=== PATIENT | female | born 1950 | race Caucasian/White ===

== ENCOUNTER → 2018-06-08 07:56 | Outpatient (CLI) | payer OTHER, SELFPAY ==
[2018-06-08 08:07] LABS: RBC Urine None Seen (0-5/HPF); WBC Urine None Seen (0-5/HPF)
[2018-06-08 08:47] LABS: Add Manual Diff / Slide Review NO; Basophils Percent Auto 1.1 % (0-2); Eosinophils Percent Auto 2.8 % (2-4); Hematocrit 43.7 % (36-46); Hemoglobin 14.7 g/dL (12.0-16.0); Lymphocytes Percent Auto 35.5 % (25-40); Mean Corpuscular HGB Conc 33.7 % (30-36); Mean Corpuscular Hemoglobin 30.8 PG (26-34); Mean Corpuscular Volume 91.5 fL (80-100); Monocytes Percent Auto 8.6 % (3-14); Neutrophils Absolute Auto 2200 /uL (3000-5900); Platelet Count 183 X10^3/uL (150-400); Red Blood Cell Count 4.77 X10^6/uL (4.0-5.2); Red Cell Distribution Width 13.9 % (11.6-14.8); White Blood Cell Count 4.2 X10^3/uL (4.5-11.0)
[2018-06-08 09:06] LABS: Appearance Urine UA CLEAR; Bilirubin Urine UA NEGATIVE (NEGATIVE); Color Urine UA YELLOW; Glucose Urine UA NEGATIVE (Normal); Ketones Urine UA NEGATIVE (NEGATIVE); Leukocyte Esterase Urine UA NEGATIVE (NEGATIVE); Nitrite Urine UA Negative (Negative); Occult Blood Urine UA NEGATIVE (Negative); Protein Urine UA NEGATIVE (Negative); Urobilinogen Urine UA 0.2 E.U./dL (0.2)
[2018-06-08 09:20] LABS: Amorphous Sediment Urine 4+; Bacteria Urine Occasional (0-1); Culture Indicated Urine Cult Not Indicated; Mucus Urine 1+ (Negative)
[2018-06-08 09:29] LABS: Alanine Aminotransferase 22 IU/L (9-52); Albumin 4.2 g/dL (3.5-5.0); Albumin Globulin Ratio 1.5 (1.0-2.8); Alkaline Phosphatase 68 U/L (38-126); Aspartate Aminotransferase 25 IU/L (14-36); Bilirubin Total 1.7 mg/dL (0.2-1.3); Blood Urea Nitrogen 20 mg/dL (7-17); Calcium 9.7 mg/dL (8.4-10.2); Carbon Dioxide 33 mmol/L (22-32); Chloride 101 mmol/L (98-107); Cholesterol 211 mg/dL (140-199); Estimated Glomerular Filt Rate > 60.0 mL/min (>60); Globulin 2.8 g/dL (1.7-4.1); Glucose 102 mg/dL (80-110); HDL Cholesterol 67 mg/dL (40-60); HEMOLYSIS < 15 (0-50); LDL Cholesterol Calculated 128 mg/dL (<100); Potassium 4.2 mmol/L (3.4-5.1); Sodium 141 mmol/L (137-145); Triglycerides 81 mg/dL (35-150)
[2018-06-08 11:05] LABS: TSH w/ Reflex to FT4 2.27 uIU/mL (0.47-4.68)
== END ==
PROVIDERS: PCP Nurse Practitioner Family; Visit Provider Nurse Practitioner Family
DX: E78.4 Other hyperlipidemia (principal); E83.52 Hypercalcemia
CPT/HCPCS: 36415; 80053; 80061; 81001; 84443; 85025

== ENCOUNTER → 2018-12-15 12:50 | Outpatient (CLI) | payer MEDICARE, SELFPAY ==
--- NOTE | 2018-12-15 12:52 | DI.MG.S_ITS ---
BILATERAL DIGITAL SCREENING MAMMOGRAM 3D/2D WITH CAD: 12/15/2018 CLINICAL: Routine screening. Family history of breast cancer. Comparison is made to exams dated: 12/04/2017 mammogram, 11/10/2016 mammogram, and 10/30/2015 mammogram - [facility]. The tissue of both breasts is heterogeneously dense. This may lower the sensitivity of mammography. Current study was also evaluated with a Computer Aided Detection (CAD) system. No significant masses, calcifications, or other findings are seen in either breast. There has been no significant interval change. IMPRESSION: NEGATIVE There is no mammographic evidence of malignancy. A 1 year screening mammogram is recommended. This exam was interpreted at Station ID: [id number]. NOTE: For mammograms, a report in lay terms will be sent to the patient. Approximately 15% of breast malignancies will not be visualized mammographically. In the management of a palpable breast mass, a negative mammogram must not discourage biopsy of a clinically suspicious lesion. Electronically Signed By: Ailyn kelsey/abel:12/16/2018 10:58:16 letter sent: Normal Exam ACR BI-RADS Category 1: Negative 3341F
== END ==
PROVIDERS: PCP Internal Medicine; Visit Provider Internal Medicine
DX: Z12.31 Encounter for screening mammogram for malignant neoplasm of breast (principal); Z80.3 Family history of malignant neoplasm of breast
CPT/HCPCS: 77063; 77067

== ENCOUNTER → 2020-03-12 10:13 | Outpatient (CLI) | payer MEDICARE, SELFPAY ==
--- NOTE | 2020-03-12 | DI.MG.S_ITS ---
BILATERAL DIGITAL SCREENING MAMMOGRAM 3D/2D WITH CAD: 03/12/2020 CLINICAL: Routine screening. Family history of breast cancer. Comparison is made to exams dated: 12/15/2018 mammogram, 12/04/2017 mammogram, and 11/10/2016 mammogram - [facility]. The tissue of both breasts is heterogeneously dense. This may lower the sensitivity of mammography. Current study was also evaluated with a Computer Aided Detection (CAD) system. No significant masses, calcifications, or other findings are seen in either breast. There has been no significant interval change. IMPRESSION: NEGATIVE There is no mammographic evidence of malignancy. A 1 year screening mammogram is recommended. This exam was interpreted at Station ID: [id number]. NOTE: For mammograms, a report in lay terms will be sent to the patient. Approximately 15% of breast malignancies will not be visualized mammographically. In the management of a palpable breast mass, a negative mammogram must not discourage biopsy of a clinically suspicious lesion. Electronically Signed By: Tony villagomez/abel:03/12/2020 10:55:30 letter sent: Normal Exam ACR BI-RADS Category 1: Negative 3341F
== END ==
PROVIDERS: PCP Internal Medicine; Referring Provider Internal Medicine; Visit Provider Internal Medicine
DX: Z12.31 Encounter for screening mammogram for malignant neoplasm of breast (principal); Z80.3 Family history of malignant neoplasm of breast
CPT/HCPCS: 77063; 77067

== ENCOUNTER → 2020-10-08 18:41 | Outpatient (ROUT) | payer MEDICARE, SELFPAY ==
[2020-10-08 19:21] LABS: Cholesterol 204 mg/dL (140-199); Glucose 83 mg/dL (80-110); HDL Cholesterol 68 mg/dL (40-60); LDL Cholesterol Calculated 122 mg/dL (<100); Triglycerides 72 mg/dL (35-150)
== END ==
PROVIDERS: PCP Internal Medicine; Visit Provider Internal Medicine
DX: E78.2 Mixed hyperlipidemia (principal)
CPT/HCPCS: 80061; 82947

== ENCOUNTER → 2020-11-06 11:28 | Outpatient (CLI) | payer MEDICARE, SELFPAY ==
--- NOTE | 2020-11-06 11:31 | DI.MRI.S_ITS ---
BREAST MRI OF BOTH BREASTS: 11/06/2020 CLINICAL: Genetic susciptibility to malignant neoplasm of breast. Comparison is made to exams dated: 03/12/2020 mammogram, 12/15/2018 mammogram, and 12/04/2017 mammogram - [facility]. INDICATIONS: Genetic susceptibility to malignant neoplasm of br TECHNIQUE: The patient was placed prone in a dedicated breast imaging coil. Precontrast axial STIR and 3D FLASH without fat saturation sequences were obtained. Both before and after bolus injection of contrast, sequential 1-minute axial 3D FLASH with fat saturation sequences for 3 time points, with subtraction images and maximum intensity projections (MIP's) generated. Delayed sagittal FLASH images with fat saturation were also obtained. Computer-aided detection, including computer algorithm analysis of MRI image data for lesion detection and characterization, pharmacokinetic analysis, with further physician review for interpretation, was performed. FINDINGS: Image quality: Excellent. There is mild background parenchymal enhancement. Heterogeneously dense breast tissue is seen bilaterally. Right breast: No suspicious mass or significant focus of non-mass enhancement is identified. Left breast: No suspicious mass or significant focus of non-mass enhancement is identified. Miscellaneous: No axillary or internal mammary lymphadenopathy by size criteria. Visualized portions of the lungs and liver demonstrate no discrete suspicious lesions. IMPRESSION: NEGATIVE 1. No suspicious mass or significant non mass enhancement is identified. 2. No suspicious axillary lymphadenopathy. BIRADS 1: Negative. Recommend continued high risk screening protocol with annual screening mammograms and annual breast MRIs at alternating 6 month intervals. COMMENT: The imaging literature indicates that a negative contrast breast MRI examination has a high sensitivity and a moderate specificity for detecting and excluding invasive carcinomas to a detection threshold of 3-5 mm; nonetheless, appropriate clinical and mammographic follow-up are recommended. MRI is not sensitive for detecting DCIS (ductal carcinoma in situ) and may not detect large invasive neoplasms that show only minimal enhancement such as mucinous carcinoma. If there are suspicious calcifications or clinically worrisome palpable masses, then biopsy should still be considered. Invasive neoplasms can be hidden by co-existent and benign enhancement caused by mastitis, hormone therapy effects, radiation therapy, , and recent biopsy or surgery. False positive examinations can occur in a number of circumstances, including breasts that have recently been subject to invasive procedures and those that contain atypical ductal hyperplasia, hormonally stimulated glandular tissue, fat necrosis, or radial scars. A 1 year screening mammogram and a breast MRI is recommended. Future imaging is recommended as follows: 03/13/2021 screening mammogram. This exam was interpreted at Station ID: [id number]. Electronically Signed By: Jamaal Langley M.D. ar/:11/06/2020 16:13:18 letter sent: Normal Exam ACR BI-RADS Category 1: Negative 3341F
== END ==
PROVIDERS: PCP Internal Medicine; Referring Provider Internal Medicine; Visit Provider Internal Medicine
DX: Z12.39 Encounter for other screening for malignant neoplasm of breast (principal); Z15.01 Genetic susceptibility to malignant neoplasm of breast
CPT/HCPCS: 77049

== ENCOUNTER → 2021-03-13 10:08 | Outpatient (CLI) | payer OTHER, SELFPAY ==
--- NOTE | 2021-03-13 | DI.MG.S_ITS ---
BILATERAL DIGITAL SCREENING MAMMOGRAM 3D/2D WITH CAD: 03/13/2021 CLINICAL: Routine screening. Family history of breast cancer. Comparison is made to exams dated: 03/12/2020 mammogram, 12/15/2018 mammogram, 12/04/2017 mammogram, 11/10/2016 mammogram, and 10/30/2015 mammogram - [facility]. The tissue of both breasts is heterogeneously dense. This may lower the sensitivity of mammography. Current study was also evaluated with a Computer Aided Detection (CAD) system. No significant masses, calcifications, or other findings are seen in either breast. There has been no significant interval change. IMPRESSION: NEGATIVE There is no mammographic evidence of malignancy. A 1 year screening mammogram is recommended. Future imaging is recommended as follows: 11/06/2021 screening breast MRI. This exam was interpreted at Station ID: [id number]. NOTE: For mammograms, a report in lay terms will be sent to the patient. Approximately 15% of breast malignancies will not be visualized mammographically. In the management of a palpable breast mass, a negative mammogram must not discourage biopsy of a clinically suspicious lesion. Electronically Signed By: Kendrick bridges/abel:03/13/2021 17:19:59 letter sent: Normal Exam ACR BI-RADS Category 1: Negative 3341F
== END ==
PROVIDERS: PCP Internal Medicine; Referring Provider Internal Medicine; Visit Provider Internal Medicine
DX: Z12.31 Encounter for screening mammogram for malignant neoplasm of breast (principal); Z80.3 Family history of malignant neoplasm of breast
CPT/HCPCS: 77063; 77067

== ENCOUNTER → 2021-04-08 09:40 | Outpatient (CLI) | payer OTHER, SELFPAY ==
[2021-04-08 11:13] LABS: COVID19 -Nasal RAPID Negative (Negative)
== END ==
PROVIDERS: PCP Internal Medicine; Visit Provider Physician Assistant
DX: Z01.812 Encounter for preprocedural laboratory examination (principal); Z20.822 Contact with and (suspected) exposure to COVID-19
CPT/HCPCS: 87635

== ENCOUNTER 2021-04-10 08:27 | Day surgery (SDC) | payer OTHER, SELFPAY ==
--- NOTE | 2021-04-10 | PATH_ITS ---
[facility] Accession Number: [id number] . 01 Material submitted: . colon - ASCENDING COLON POLYP X2 . 02 Diagnosis: Ascending Colon, Polyps, Biopsies: Sessile serrated adenomas. I 04/12/2021 1135 Local . 02 Electronically signed: . Ashley Morgan MD, Pathologist NPI- [id number] . 01 Gross description: . ASCENDING COLON POLYP X2: Received in formalin are 2 fragment(s) of perez, soft tissue measuring 0.2 x 0.2 x 0.2 cm to 0.8 x 0.3 x 0.2 cm submitted entirely in 1 cassette(s) /LIANG 04/11/2021 0145 Local . 02 Pathologist provided ICD-10: D12.2 . 02 CPT . 670068 Performed at: 01 [facility] [address] [id number] MD Michael Daniel MD Phone: [phone] Performed at: 02 [facility] [address] [place], [place] [id number] MD Ashley Morgan MD Phone: [phone]
[2021-04-10 08:56] VITALS: BMI 22.7
[2021-04-10 09:01] VITALS: BP 112/75; PULSE 83; RESP 14; TEMP 36.3; O2SAT 100
[2021-04-10] MEDS: SODIUM CHLORIDE 0.9% 1,000 ML 70 ML IV (09:02)
--- NOTE | 2021-04-10 09:32 | P.HP_ITS ---
History of Present Illness History of Present Illness Date Patient Seen: 04/10/21 Time Patient Seen: 09:32 Chief complaint: MTC Narrative: Patient is a very pleasant 71-year-old female who presented for colonoscopy. Her last colonoscopy was July 23, 2014. She did have polyps at that time and a 5 year recheck was recommended. Her father also had colon polyps. Her sister was recently diagnosed with a genetic mutation which carries an increased risk for breast cancer and colon cancer. The patient has not yet been tested. Patient History Medical History (Updated 06/15/18 @ 18:18 by Nava Baez DNP, ANDREA, [employer]) Cataract (2011) Cervical spinal stenosis (2011) Chicken pox Colon polyps Fibroids History of heavy periods (1994) History of vaginal delivery Measles Mumps Osteopenia (~1996) Ovarian cyst (2004) Piriformis syndrome (2015) Toe fracture (2013) Surgical History Anesthesia History of bilateral salpingo-oophorectomy (BSO) History of cataract removal with insertion of prosthetic lens (2011) History of right oophorectomy (2004) History of third molar tooth extraction (1971) Family & Social History Family History Brother Age: 65 Bipolar 1 disorder Cardiomyopathy Diabetes mellitus Heart disease Hypertension High cholesterol COPD (chronic obstructive pulmonary disease) Father S/P CABG x 6 Heart disease High cholesterol Mental health problem Parkinson's disease Dementia Grandfather Hypertension Stroke Migraines Mother Heart disease Heart attack Grandfather Cancer Grandmother Cancer Sister Age: 56 Heart disease High cholesterol Mental health problem Grandmother Dementia Social History: household members spouse Tobacco & Substance use: Smoking Status Never smoker alcohol intake current alcohol intake frequency 0-2 drinks per day Substance Use Type does not use Meds Home Medications and Allergies Home Medications Medication Instructions Recorded Confirmed Type Fish Oil (Fish Oil 500 MG Softgel) 500 mg PO Q DAY #0 01/03/13 04/10/21 History cholecalciferol (vitamin D3) 25 mcg PO DAILY 04/10/21 04/10/21 History [Vitamin D3] coenzyme Q10 [CoQ-10] 100 mg PO DAILY 04/10/21 04/10/21 History magnesium 250 mg PO DAILY 04/10/21 04/10/21 History Allergies Allergy/AdvReac Type Severity Reaction Status Date / Time Penicillins Allergy Mild RASH Verified 04/10/21 08:40 Review of Systems Review of Systems ROS: Yes All systems reviewed with the patient and are negative except as otherwise documented Exam Vital Signs (past 8 hours): - 04/10/21 09:01 Temperature 97.3 F L Pulse Rate 83 Respiratory Rate 14 Blood Pressure 112/75 Pulse Oximetry 100 Oxygen Delivery Method Room Air Const General: cooperative, healthy appearing, comfortable, well developed, well groomed and No acute distress [facility] Head: normal to inspection, normocephalic and atraumatic Resp Effort & Inspection: normal respiratory effort and able to speak in complete sentences Auscultation: clear to auscultation bilaterally Cardio Rate: regular rate Rhythm: regular rhythm Heart Sounds: S1 normal and S2 normal GI Palpation: soft Auscultation: normal bowel sounds Extrem Right lower extremity: no edema Left lower extremity: no edema Assessment & Plan Assessment & Plan narrative: 1. Colonoscopy today, further recommendations to follow
[2021-04-10] MEDS: fentaNYL 250 MCG/5 ML INJ IV (09:41)
[2021-04-10] MEDS: MIDAZOLAM 5 MG/5 ML VIAL IV (09:41)
[2021-04-10 10:19] VITALS: BP 101/66; PULSE 80; RESP 16; TEMP 36.4; O2SAT 96
--- NOTE | 2021-04-10 10:20 | PM.OP.ENDO ---
Operative Date/Time/Diagnoses Date of procedure: 04/10/21 Time of procedure: 09:41 Procedure Notes Procedure in detail: Surgeon: Valentina Gould DO Procedure: Colonoscopy with polypectomy Preoperative diagnosis: 1. Personal history colon polyps, last colonoscopy 07/24/2014 2. Family history colon polyps, father 3. Sister with genetic syndromes increasing risk of breast cancer and colon cancer Postoperative diagnosis: 1. Two ascending colon polyps from 3 mm to 11 mm 2. Scattered diverticulosis 3. Grade 1 internal hemorrhoids Medications: Conscious sedation using 5 mg IV of Midazolam and 100 mcg IV of Fentanyl Preanesthesia Assessment An H and P was performed/updated and the Px?s ASA class is 2. The procedure was discussed in detail with the patient. The potential risks and complications including infection, bleeding, missed lesions, perforation, need for surgery in case of perforation, prolonged hospital stay, and were explained. A brief question and answer period was allotted and once all questions were answered, informed consent was obtained. The patient was brought back to the procedure room and placed on standard monitoring. The patient?s vital signs were monitored continuously throughout the entire procedure. Prior to starting, a timeout was performed to confirm the patient?s identity, allergies, medications, and procedure. Procedure in detail The patient was placed in left lateral decubitus position and once adequate sedation was obtained a KAVITA was performed. The digital rectal examination did not reveal any palpable lesions. The tip of the colonoscope was placed in the anal canal and advanced with some difficulty, manual pressure was applied due to redundant colon with significant looping. With assistance we were able to advance all the way to the cecum which was identified by the appendiceal orifice and the ileocecal valve. Careful examination of all tian of the colon was performed with irrigation of any residual stool. Patient was noted to have an ascending colon polyp 11 mm flat removed with cold snare. An additional 3 mm colon polyp in ascending colon removed with Jumbo forceps. Scattered diverticulosis noted throughout the colon. Grade 1 internal hemorrhoids noted on retroflexion. The patient tolerated the procedure well and will be brought back to the recovery area to be discharged once criteria are met. The prep was judged to be good/excellent and adequate to identify polyps less than 5 mm. The withdrawal time was 11min. The total physician intraservice time was 34min. Complications There were no complications and estimated blood loss was minimal. Recommendations: Resume previous diet Continue outPx medications Follow up pathology results Repeat colonoscopy after pathology results are reviewed Office follow up in An emergency contact number was given to the patient for any complications related to the procedure
[2021-04-10 10:24] VITALS: BP 102/66; PULSE 68; RESP 16; O2SAT 99
[2021-04-10 10:28] VITALS: BP 108/64; PULSE 69; RESP 16; O2SAT 99
[2021-04-10 10:39] VITALS: BP 110/67; PULSE 64; RESP 14; O2SAT 98
[2021-04-10 10:45] VITALS: BP 105/63; PULSE 62; RESP 16; TEMP 36.7; O2SAT 98
== END 2021-04-10 10:59 | disposition home or self-care (01) ==
PROVIDERS: PCP Internal Medicine; Referring Provider Internal Medicine; Visit Provider Student in an Organized Health Care Education/Training Program
PROC: 0DJD8ZZ Inspection of Lower Intestinal Tract, Via Natural or Artificial Opening Endoscopic (ICD-10-PCS; CPT 45378; principal; 2021-04-10 09:30)
DX: Z12.11 Encounter for screening for malignant neoplasm of colon (principal); Z86.010 Personal history of colon polyps; Z83.71 Family history of colonic polyps; K57.30 Diverticulosis of large intestine without perforation or abscess without bleeding; K64.0 First degree hemorrhoids; D12.2 Benign neoplasm of ascending colon
CPT/HCPCS: 45385; 45380; J2250; J3010

== ENCOUNTER → 2021-08-21 07:08 | Outpatient (CLI) | payer OTHER, SELFPAY ==
[2021-08-21 07:51] LABS: COVID19 -Nasal RAPID Negative (Negative)
== END ==
PROVIDERS: PCP Internal Medicine; Visit Provider Nurse Practitioner Family
DX: Z20.822 Contact with and (suspected) exposure to COVID-19 (principal); R05.9 Cough, unspecified; R09.81 Nasal congestion; R51.9 Headache, unspecified
CPT/HCPCS: 87635

== ENCOUNTER → 2021-09-25 10:05 | Outpatient (CLI) | payer OTHER, SELFPAY ==
--- NOTE | 2021-09-25 | DI.RAD.S_ITS ---
PROCEDURE: XR CHEST 2V INDICATIONS: CHRONIC COUGH TECHNIQUE: 2 views of the chest were acquired. COMPARISON: None. FINDINGS: Surgical changes and devices: None. Lungs and pleura: No pneumothorax or pleural effusion. Diffuse interstitial prominence likely chronic in etiology. Mild hyperaeration and flattening of the hemidiaphragms. No focal consolidation. Mediastinum: Mediastinal contours are normal. Heart size is normal. Bones and chest wall: No suspicious bony abnormalities. Soft tissues appear unremarkable. IMPRESSION: Findings suggestive of chronic obstructive pulmonary physiology. No acute cardiopulmonary abnormality seen. No focal consolidations. Consider correlation with pulmonary function testing. Dictated by: Tony Zuniga M.D. on 09/25/2021 at 10:35 Approved by: Tony Zuniga M.D. on 09/25/2021 at 10:37
== END ==
PROVIDERS: PCP Internal Medicine; Referring Provider Internal Medicine; Visit Provider Internal Medicine
DX: R05.3 Chronic cough (principal)
CPT/HCPCS: 71046

== ENCOUNTER → 2021-11-05 11:21 | Outpatient (CLI) | payer MEDICARE, SELFPAY ==
--- NOTE | 2021-11-05 11:22 | DI.MRI.S_ITS ---
BREAST MRI OF BOTH BREASTS: 11/05/2021 CLINICAL: Genitic susceptibility to malignant neoplasm of breast. PROCEDURE: MR BREAST BI WO/W CON INDICATIONS: Genetic susceptibility to malignant neoplasm of br TECHNIQUE: The patient was placed prone in a dedicated breast imaging coil. Precontrast axial STIR and 3D FLASH without fat saturation sequences were obtained. Both before and after bolus injection of contrast, sequential 1-minute axial 3D FLASH with fat saturation sequences for 3 time points, with subtraction images and maximum intensity projections (MIP's) generated. Delayed sagittal FLASH images with fat saturation were also obtained. 20 cc ProHance IV contrast. Computer-aided detection, including computer algorithm analysis of MRI image data for lesion detection and characterization, pharmacokinetic analysis, with further physician review for interpretation, was performed. COMPARISON: [facility], CR, XR CHEST 2V, 09/25/2021, 9:59. [facility], MG, MM SCREENING MAMMO BI, 03/13/2021, 10:31. [facility], , MM SCREENING MAMMO BI, 03/12/2020, 10:30. [facility], , MM SCREENING MAMMO BI, 12/15/2018, 13:15. [facility], , MR BREAST BI WO/W CON, 11/06/2020, 11:39. FINDINGS: Image quality: Excellent. There is minimal background parenchymal enhancement. Right breast: No mass or suspicious enhancement. Left breast: No mass. Enhancing focus 12:00 o'clock middle depth measuring 0.3 cm, (), unchanged. Benign kinetics. Miscellaneous: No enlarged axillary nodes. Mediastinal adenopathy, (/112, 99, 91). IMPRESSION: BENIGN 1. Right breast: No mass or suspicious enhancement. 2. Left breast: No mass or suspicious enhancement. 3. No axillary adenopathy. 4. Mediastinal adenopathy is identified. -Recommend further evaluation with CT of the chest with IV contrast. BIRADS 2. A 1 year screening mammogram is recommended. 03/14/[address] Chest with IV contrast. Results called to [facility] in the office of Dr. Merrill. COMMENT: The imaging literature indicates that a negative contrast breast MRI examination has a high sensitivity and a moderate specificity for detecting and excluding invasive carcinomas to a detection threshold of 3-5 mm; nonetheless, appropriate clinical and mammographic follow-up are recommended. MRI is not sensitive for detecting DCIS (ductal carcinoma in situ) and may not detect large invasive neoplasms that show only minimal enhancement such as mucinous carcinoma. If there are suspicious calcifications or clinically worrisome palpable masses, then biopsy should still be considered. Invasive neoplasms can be hidden by co-existent and benign enhancement caused by mastitis, hormone therapy effects, radiation therapy, , and recent biopsy or surgery. False positive examinations can occur in a number of circumstances, including breasts that have recently been subject to invasive procedures and those that contain atypical ductal hyperplasia, hormonally stimulated glandular tissue, fat necrosis, or radial scars. Dictated by: Kendrick Lazcano M.D. on 11/05/2021 at 15:09 This exam was interpreted at Station ID: [id number]. Electronically Signed By: Kendrick Lazcano M.D. slc/:11/05/2021 15:55:14 Entry: - 11/06/2021 12:06:14 ACR BI-RADS Category 2: Benign Finding(s) 3342F
== END ==
PROVIDERS: PCP Internal Medicine; Referring Provider Internal Medicine; Visit Provider Internal Medicine
DX: Z12.39 Encounter for other screening for malignant neoplasm of breast (principal); R59.0 Localized enlarged lymph nodes; Z15.01 Genetic susceptibility to malignant neoplasm of breast; Z15.89 Genetic susceptibility to other disease; Z15.09 Genetic susceptibility to other malignant neoplasm; Z15.02 Genetic susceptibility to malignant neoplasm of ovary
CPT/HCPCS: 77049; A9579

== ENCOUNTER → 2022-03-14 11:38 | Outpatient (CLI) | payer OTHER, SELFPAY ==
--- NOTE | 2022-03-14 | DI.MG.S_ITS ---
BILATERAL DIGITAL SCREENING MAMMOGRAM 3D/2D WITH CAD: 03/14/2022 CLINICAL: Routine screening. Family history of breast cancer. Comparison is made to exams dated: 03/13/2021 mammogram, 11/05/2021 breast MRI, 03/12/2020 mammogram, and 12/15/2018 mammogram - [facility]. The tissue of both breasts is heterogeneously dense. This may lower the sensitivity of mammography. Current study was also evaluated with a Computer Aided Detection (CAD) system. There are benign vascular calcifications in both breasts. No significant masses, calcifications, or other findings are seen in either breast. There has been no significant interval change. IMPRESSION: BENIGN There is no mammographic evidence of malignancy. A 1 year screening mammogram is recommended. This exam was interpreted at Station ID: [id number]. NOTE: For mammograms, a report in lay terms will be sent to the patient. Approximately 15% of breast malignancies will not be visualized mammographically. In the management of a palpable breast mass, a negative mammogram must not discourage biopsy of a clinically suspicious lesion. Electronically Signed By: Tony villagomez/abel:03/14/2022 12:15:44 letter sent: Normal Exam ACR BI-RADS Category 2: Benign Finding(s) 3342F
== END ==
PROVIDERS: PCP Internal Medicine; Referring Provider Internal Medicine; Visit Provider Internal Medicine
DX: Z12.31 Encounter for screening mammogram for malignant neoplasm of breast (principal); Z80.3 Family history of malignant neoplasm of breast
CPT/HCPCS: 77063; 77067

== ENCOUNTER → 2022-09-12 14:52 | Outpatient (CLI) | payer OTHER, SELFPAY ==
[2022-09-12 15:26] LABS: Hematocrit 41.6 % (36-46); Hemoglobin 13.6 g/dL (12.0-16.0); Mean Corpuscular HGB Conc 32.6 % (30-36); Mean Corpuscular Hemoglobin 28.4 PG (26-34); Platelet Count 255 X10^3/uL (150-400); Red Blood Cell Count 4.79 X10^6/uL (4.0-5.2); Red Cell Distribution Width 15.8 % (11.6-14.8); White Blood Cell Count 5.8 X10^3/uL (4.5-11.0)
[2022-09-12 15:56] LABS: Erythrocyte Sedimentation Rate 6 MM/HR (0-20)
[2022-09-12 16:04] LABS: Cholesterol 202 mg/dL (140-199); HEMOLYSIS < 15 (0-50)
[2022-09-12 16:06] LABS: Alanine Aminotransferase 15 IU/L (<35); Albumin 4.1 g/dL (3.5-5.0); Albumin Globulin Ratio 1.1 (1.0-2.8); Alkaline Phosphatase 87 U/L (38-126); Aspartate Aminotransferase 20 IU/L (14-36); BUN Creatinine Ratio 26.5 (6-22); Bilirubin Total 0.8 mg/dL (0.2-1.3); Blood Urea Nitrogen 22 mg/dL (7-17); C-Reactive Protein Quant 0.6 mg/dL (<1.0); Calcium 9.9 mg/dL (8.4-10.2); Carbon Dioxide 30 mmol/L (22-32); Chloride 100 mmol/L (98-107); Estimated Glomerular Filt Rate > 60 mL/min (>60); Globulin 3.6 g/dL (1.7-4.1); Glucose 106 mg/dL (80-110); HDL Cholesterol 64 mg/dL (40-60); LDL Cholesterol Calculated 121 mg/dL (<100); Potassium 4.3 mmol/L (3.4-5.1); Sodium 139 mmol/L (137-145); Total Protein 7.7 g/dL (6.3-8.2); Triglycerides 87 mg/dL (35-150)
[2022-09-12 16:30] LABS: TSH w/ Reflex to FT4 2.47 uIU/mL (0.47-4.68)
== END ==
PROVIDERS: PCP Internal Medicine; Referring Provider Internal Medicine; Visit Provider Internal Medicine
DX: E78.2 Mixed hyperlipidemia (principal); J30.2 Other seasonal allergic rhinitis; M35.3 Polymyalgia rheumatica
CPT/HCPCS: 36415; 80053; 80061; 84443; 85027; 85651; 86140

== ENCOUNTER → 2022-11-14 10:43 | Outpatient (CLI) | payer MEDICARE, SELFPAY ==
--- NOTE | 2022-11-14 10:44 | DI.MRI.S_ITS ---
BREAST MRI OF BOTH BREASTS: 11/14/2022 CLINICAL: BCRA positive. Comparison is made to exams dated: 03/14/2022 mammogram, 11/05/2021 breast MRI, 03/13/2021 mammogram, 11/06/2020 breast MRI, and 03/12/2020 mammogram - [facility]. 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 Precontrast axial STIR and 3D FLASH without fat saturation sequences were obtained. Both before and after bolus injection of contrast, sequential 1-minute axial 3D FLASH with fat saturation sequences for 3 time points, with subtraction images and maximum intensity projections (MIP's) generated. Delayed sagittal FLASH images with fat saturation were also obtained. Computer-aided detection, including computer algorithm analysis of MRI image data for lesion detection and characterization, pharmacokinetic analysis, with further physician review for interpretation, was performed. FINDINGS: Image quality: Excellent. There is minimal background parenchymal enhancement. The tissue of both breasts is heterogeneously dense. Right breast: No suspicious mass or abnormal non-mass enhancement is seen in the breast. No significant internal mammary or axillary lymphadenopathy. Left breast: No suspicious mass or abnormal non-mass enhancement is seen in the breast. No significant internal mammary or axillary lymphadenopathy. Miscellaneous: The included portions of the anterior chest wall and upper abdomen are unremarkable. Previously seen mediastinal lymphadenopathy is no longer visualized. IMPRESSION: NEGATIVE 1. No MR evidence of malignancy in the right or left breast. 2. No axillary or internal mammary lymphadenopathy. BIRADS 1: Negative. Recommend continued annual high risk screening with annual mammograms and annual breast MRI. COMMENT: The imaging literature indicates that a negative contrast breast MRI examination has a high sensitivity and a moderate specificity for detecting and excluding invasive carcinomas to a detection threshold of 3-5 mm; nonetheless, appropriate clinical and mammographic follow-up are recommended. MRI is not sensitive for detecting DCIS (ductal carcinoma in situ) and may not detect large invasive neoplasms that show only minimal enhancement such as mucinous carcinoma. If there are suspicious calcifications or clinically worrisome palpable masses, then biopsy should still be considered. Invasive neoplasms can be hidden by co-existent and benign enhancement caused by mastitis, hormone therapy effects, radiation therapy, , and recent biopsy or surgery. False positive examinations can occur in a number of circumstances, including breasts that have recently been subject to invasive procedures and those that contain atypical ductal hyperplasia, hormonally stimulated glandular tissue, fat necrosis, or radial scars. A 1 year screening mammogram and a breast MRI is recommended. Future imaging is recommended as follows: 03/15/2023 screening mammogram. This exam was interpreted at Station ID: [id number]. Electronically Signed By: Jamaal Langley M.D. ar/:11/14/2022 19:58:20 letter sent: Normal Exam ACR BI-RADS Category 1: Negative 3341F
== END ==
PROVIDERS: PCP Internal Medicine; Referring Provider Internal Medicine; Visit Provider Internal Medicine
DX: Z12.39 Encounter for other screening for malignant neoplasm of breast (principal); Z15.01 Genetic susceptibility to malignant neoplasm of breast; Z15.02 Genetic susceptibility to malignant neoplasm of ovary; Z15.09 Genetic susceptibility to other malignant neoplasm; Z15.89 Genetic susceptibility to other disease; Z80.3 Family history of malignant neoplasm of breast
CPT/HCPCS: 77049; A9579

== ENCOUNTER → 2023-01-24 07:56 | Outpatient (CLI) | payer MEDICARE, SELFPAY ==
[2023-01-24 09:05] LABS: Influenza A - CEPHEID Flu A NEGATIVE (NEGATIVE); Influenza B - CEPHEID Flu B NEGATIVE (NEGATIVE); Respiratory Syncytial Virus Negative (Negative)
[2023-01-24 09:11] LABS: COVID-19 CEPHEID 4-PLEX PCR Negative (Negative)
== END ==
PROVIDERS: PCP Internal Medicine; Visit Provider Nurse Practitioner Family
DX: J06.9 Acute upper respiratory infection, unspecified (principal); Z20.822 Contact with and (suspected) exposure to COVID-19
CPT/HCPCS: 0241U

== ENCOUNTER → 2023-03-20 11:44 | Outpatient (CLI) | payer MEDICARE, SELFPAY ==
--- NOTE | 2023-03-20 | DI.MG.S_ITS ---
BILATERAL DIGITAL SCREENING MAMMOGRAM 3D/2D WITH CAD: 03/20/2023 CLINICAL: Routine screening. Family history of breast cancer. Comparison is made to exams dated: 03/14/2022 mammogram, 03/13/2021 mammogram, 03/12/2020 mammogram, and 12/15/2018 mammogram - [facility]. Both breasts are heterogeneously dense, which may obscure small masses (category c / 51-75% glandular tissue). Current study was also evaluated with a Computer Aided Detection (CAD) system. There are benign vascular calcifications in both breasts. No significant masses, calcifications, or other findings are seen in either breast. There has been no significant interval change. IMPRESSION: BENIGN There is no mammographic evidence of malignancy. A 1 year screening mammogram is recommended. Future imaging is recommended as follows: 11/15/2023 screening breast MRI. Based on the Tyrer Cuzick model (a risk assessment model) the patient's lifetime risk is 16.5% and her 10 year risk is 11.5%. According to the ACR, ACS, and NCCN guidelines, an annual breast MRI exam along with mammogram is recommended if the patient's lifetime risk is 20% or greater. This exam was interpreted at Station ID: [id number]. NOTE: For mammograms, a report in lay terms will be sent to the patient. Approximately 15% of breast malignancies will not be visualized mammographically. In the management of a palpable breast mass, a negative mammogram must not discourage biopsy of a clinically suspicious lesion. Electronically Signed By: Tony [email or web address]/abel:03/20/2023 17:35:16 letter sent: Normal Exam ACR BI-RADS Category 2: Benign Finding(s) 3342F
== END ==
PROVIDERS: PCP Internal Medicine; Referring Provider Internal Medicine; Visit Provider Internal Medicine
DX: Z12.31 Encounter for screening mammogram for malignant neoplasm of breast (principal); Z80.3 Family history of malignant neoplasm of breast
CPT/HCPCS: 77063; 77067

== ENCOUNTER → 2023-04-22 11:42 | Outpatient (CLI) | payer MEDICARE, SELFPAY ==
--- NOTE | 2023-04-22 11:44 | DI.RAD.S_ITS ---
PROCEDURE: XR LUMBAR SPINE 2-3V INDICATIONS: right si joint pain TECHNIQUE: 3 views of the lumbar spine were acquired. COMPARISON: [facility], , L-SPINE 2-3 VIEWS, 12/24/2015, 13:01. FINDINGS: Bones: 5 [id number] vertebrae are present. Anterolisthesis of L4 on L5 measuring 0.5 cm. Retrolisthesis of L2 on L3 measuring 0.5 cm. Minimal scoliosis. Small vertebral body osteophytes. Mild degenerative change at the SI joints. Overall findings are similar to 2016. No vertebral body compression fractures. No suspicious bony lesions. Soft tissues: Overlying bowel gas pattern is normal. No suspicious soft tissue calcifications. IMPRESSION: No compression fracture. Moderate degenerative change in the lumbar spine. Mild degenerative change at the SI joints. Dictated by: Kendrick Lazcano M.D. on 04/22/2023 at 19:24 Approved by: Kendrick Lazcano M.D. on 04/22/2023 at 19:37
--- NOTE | 2023-04-22 11:44 | DI.RAD.S_ITS ---
PROCEDURE: XR PELVIS 1-2V INDICATIONS: right si joint pain TECHNIQUE: 1 view(s) of the pelvis acquired. COMPARISON: [facility], DENIS, XR LUMBAR SPINE 2-3V, 04/22/2023, 11:48. [facility], DENIS, PELVIS W UNILATERAL HIP RIGHT, 07/20/2015, 10:37. FINDINGS: Bones: No fractures or dislocations. Mild joint space narrowing. Acetabular roof sclerosis. Osteophytic lipping. Mild degenerative change at the SI joints. No suspicious bony lesions. Soft tissues: Visualized bowel gas pattern is normal. No suspicious soft tissue calcifications. IMPRESSION: Mild degenerative change at the SI joints. [id number] bilateral hip DJD. Dictated by: Kendrick Lazcano M.D. on 04/22/2023 at 19:37 Approved by: Kendrick Lazcano M.D. on 04/22/2023 at 19:38
== END ==
PROVIDERS: PCP Internal Medicine; Referring Provider Internal Medicine; Visit Provider Internal Medicine
DX: M53.3 Sacrococcygeal disorders, not elsewhere classified (principal); M16.0 Bilateral primary osteoarthritis of hip; M47.816 Spondylosis without myelopathy or radiculopathy, lumbar region; G89.29 Other chronic pain
CPT/HCPCS: 72100; 72170

== ENCOUNTER → 2023-07-23 13:57 | Outpatient (CLI) | payer MEDICARE, SELFPAY ==
[2023-07-23 16:41] LABS: Appearance Urine UA CLEAR; Bilirubin Urine UA NEGATIVE (NEGATIVE); Color Urine UA YELLOW; Glucose Urine UA NEGATIVE (Negative); Ketones Urine UA NEGATIVE (NEGATIVE); Leukocyte Esterase Urine UA 1+ (NEGATIVE); Nitrite Urine UA NEGATIVE (Negative); Occult Blood Urine UA 3+ (Negative); Protein Urine UA 1+ (Negative); Urobilinogen Urine UA 0.2 E.U./dL (0.2)
[2023-07-23 17:02] LABS: Bacteria Urine Moderate (10-30); RBC Urine 5-10/HPF (0-5/HPF); Squamous Epithelial Cell Urine 0-1 /HPF (0-5/HPF); WBC Urine 10-30/HPF (0-5/HPF)
[2023-07-23 17:03] LABS: Culture Indicated Urine Specimen Cultured
== END ==
PROVIDERS: Family Provider Internal Medicine; PCP Internal Medicine; Referring Provider Internal Medicine; Visit Provider Internal Medicine
DX: N39.0 Urinary tract infection, site not specified (principal); R30.0 Dysuria
CPT/HCPCS: 81001; 87077; 87086; 87186

== ENCOUNTER 2023-08-12 07:30 | Outpatient (RCR) | payer MEDICARE, SELFPAY ==
--- NOTE | 2023-06-05 10:54 | PT.OIE ---
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) Mumps Osteopenia (~1996) Ovarian cyst (2004) Piriformis syndrome (2015) Primary osteoarthritis involving multiple joints Spinal stenosis, lumbar region without neurogenic claudication Toe fracture (2013) Venous (peripheral) insufficiency Past Surgical History (Last Reviewed 05/07/23 @ 14:13 by Keagan Merrill MD) Anesthesia History of bilateral salpingo-oophorectomy (BSO) History of cataract removal with insertion of prosthetic lens (2011) History of right oophorectomy (2004) History of third molar tooth extraction (1971) Visit Care Team Role Provider Type Keagan Merrill MD Attending Provider Physician Family Provider Primary Care Provider Referring Provider Specialty: Internal Medicine Address: [address] [place] [address] Email: [email or web address] Physical Therapy Initial Evaluation PT-OP-A Visit Information Start: 06/05/23 07:23 Freq: Status: Active Protocol: Document 06/05/23 10:39 ED (Rec: 06/05/23 10:54 ED [id number]) Out-Patient Physical Therapy Visit Information Visit Information Visit Type Initial Evaluation Visit Note 11/04 Visit Start Time 07:30 Visit Stop Time 08:15 Total Visit Minutes 45 Evaluation Information Evaluation Date 06/05/23 PT-OP-B Current Condition Start: 06/05/23 07:23 Freq: Status: Active Protocol: Document 06/05/23 10:39 ED (Rec: 06/05/23 10:54 ED [id number]) Current Condition History of Current Condition Onset Date March Current Complaints R hip, SI pain History of Current Condition Pt states that she has been having R hip and SI pain since March of this year which she attributes to doing too much yard work in a day. The pain comes and goes but is most noticeable after prolonged walking. She used to walk 3 miles most days of the week but has since only been walking .5 miles or so. She notes she has a leg length discrepancy and wears a heel lift for her L LE. She states she has been trying to manage it c/ Tylenol and ice. PT-OP-C Subjective Start: 06/05/23 07:23 Freq: Status: Active Protocol: Document 06/05/23 10:39 ED (Rec: 06/05/23 10:54 ED [id number]) Patient Questionnaires Lower Extremity Functional Scale LEFS Score 56 / 80 LEFS Impairment 20 to 39% Impaired (Score 48- 62) PT-OP-K Range of Motion Start: 06/05/23 07:23 Freq: Status: Active Protocol: Document 06/05/23 10:39 ED (Rec: 06/05/23 10:54 ED [id number]) Hip Goniometric Range of Motion Hip Left Passive Hip ROM WFL Yes Testing Position Supine Comments no pain noted in hip or low back during ROM testing. Normal ROM observed, no obvious limitations Left Hip ROM WFL Yes Testing Position Supine PT-OP-L Special Tests Start: 06/05/23 07:23 Freq: Status: Active Protocol: Document 06/05/23 10:39 ED (Rec: 06/05/23 10:54 ED [id number]) Special Tests Lumbar Spine Special Tests Standing Flexion Test Results - Neural Special Tests- Lower Body Sciatic Nerve Tension Test Results - PT-OP-Q Treatments Start: 06/05/23 07:23 Freq: Status: Active Protocol: Document 06/05/23 10:39 ED (Rec: 06/05/23 10:54 ED [id number]) Therapeutic Exercises Supine Exercises bridge Side bilateral Reps/Minutes x10 Comments DL, SL Sidelying Exercises hip abduction Side bilateral Reps/Minutes x10 Sitting Exercises pigeon stretch Side bilateral Reps/Minutes x30'' Standing Exercises heel raise Side bilateral Reps/Minutes x10-20 PT-OP-T Assessment and Plan Start: 06/05/23 07:23 Freq: Status: Active Protocol: Document 06/05/23 10:39 ED (Rec: 06/05/23 10:54 ED [id number]) Physical Therapy Assessment Rehab Potential Rehabilitation Potential Good Evaluation Complexity Number of Personal Factors/Comorbidities 1-2 Number of Body Systems Impaired 1-2 Clinical Presentation at Evaluation Stable Impairments Impairments Activity Tolerance,Functional Activities,Functional Mobility ,Gait,Pain Goals Three Impairment LEFS Marker Assembler Goal (LTG) Pt will improve LEFS score by 6 points to a score of 50. LTG Duration 4-6 weeks Two Impairment pain Short Term Goal (STG) Pt jesus report 20% improvement in R hip/SI pain when walking/ hiking. STG Duration 3 weeks Marker Assembler Goal (LTG) Pt will report 50% improvement in R hip/SI pain when walking /hiking. LTG Duration 6 weeks One Impairment HEP Short Term Goal (STG) Pt will report performing HEP >4 days/week. STG Duration 2 weeks Longterm Goal (LTG) Pt will report performing HEP >4 days/week. LTG Duration 6 weeks Assessment Summary Assessment Pt reported to PT c/ complaints of R hip and SI pain that occurs mostly during prolonged walking. She has had to reduce her walking distance significantly d/t pain. Pt had normal hip ROM c/ no pain noted throughout available ROM. Additionally, patient did not report pain during muscle strength test of hip such as bridge and hip abduction. Pt demonstrated good hamstring mobility, as well. Pt provided HEP of : gradual walking program, hip bridges, hip abduction, pigeon stretch on table, and heel raises which she was able to do comfortably today. Physical Therapy Plan Frequency and Duration Frequency of Treatment 2x/Week Duration of treatment (weeks) 10 Plan of Care Start Date 06/05/23 Plan of Care End Date 09/03/23 Therapeutic Interventions Therapeutic Interventions Balance Training,Home Exercise Program,Joint Mobilizations, Manual Therapy,Neuromuscular Re-education,Patient/Caregiver Education,Self-Care/Home Management,Soft Tissue Mobilization,Taping, Therapeutic Activities, Therapeutic Exercises Modalities Biofeedback,Cold Pack/Ice Massage,Electric Stimulation, Hot Packs,Ultrasound Next Visit Focus/Plan Next Note Type Treatment Note Next Visit Plan TM, HEP (bridge, hip abd, pigeon stretch, heel raise), step ups, further hip focused strengthening
--- NOTE | 2023-06-05 10:54 | PT.OPPOC ---
Physical, Occupational & Speech Therapy At [facility] Current Diagnoses Other chronic pain (06/05/23) Pain in right hip (06/05/23) Sacrococcygeal disorders, not elsewhere classified (06/05/23) Visit Care Team Role Provider Type Keagan Merrill MD Attending Provider Physician Family Provider Primary Care Provider Referring Provider Specialty: Internal Medicine Address: [address] [place] [address], [facility] Email: [email or web address] Plan Of Care PT-OP-T Assessment and Plan Start: 06/05/23 07:23 Freq: Status: Active Protocol: Document 06/05/23 10:39 ED (Rec: 06/05/23 10:54 ED [id number]) Physical Therapy Assessment Rehab Potential Rehabilitation Potential Good Evaluation Complexity Number of Personal Factors/Comorbidities 1-2 Number of Body Systems Impaired 1-2 Clinical Presentation at Evaluation Stable Impairments Impairments Activity Tolerance,Functional Activities,Functional Mobility ,Gait,Pain Goals Three Impairment LEFS Rose Grading Supervisor Goal (LTG) Pt will improve LEFS score by 6 points to a score of 50. LTG Duration 4-6 weeks Two Impairment pain Short Term Goal (STG) Pt jesus report 20% improvement in R hip/SI pain when walking/ hiking. STG Duration 3 weeks Nursing Home Goal (LTG) Pt will report 50% improvement in R hip/SI pain when walking /hiking. LTG Duration 6 weeks One Impairment HEP Short Term Goal (STG) Pt will report performing HEP >4 days/week. STG Duration 2 weeks Rose Grading Supervisor Goal (LTG) Pt will report performing HEP >4 days/week. LTG Duration 6 weeks Assessment Summary Assessment Pt reported to PT c/ complaints of R hip and SI pain that occurs mostly during prolonged walking. She has had to reduce her walking distance significantly d/t pain. Pt had normal hip ROM c/ no pain noted throughout available ROM. Additionally, patient did not report pain during muscle strength test of hip such as bridge and hip abduction. Pt demonstrated good hamstring mobility, as well. Pt provided HEP of : gradual walking program, hip bridges, hip abduction, pigeon stretch on table, and heel raises which she was able to do comfortably today. Physical Therapy Plan Frequency and Duration Frequency of Treatment 2x/Week Duration of treatment (weeks) 10 Plan of Care Start Date 06/05/23 Plan of Care End Date 09/03/23 Therapeutic Interventions Therapeutic Interventions Balance Training,Home Exercise Program,Joint Mobilizations, Manual Therapy,Neuromuscular Re-education,Patient/Caregiver Education,Self-Care/Home Management,Soft Tissue Mobilization,Taping, Therapeutic Activities, Therapeutic Exercises Modalities Biofeedback,Cold Pack/Ice Massage,Electric Stimulation, Hot Packs,Ultrasound Next Visit Focus/Plan Next Note Type Treatment Note Next Visit Plan TM, HEP (bridge, hip abd, pigeon stretch, heel raise), step ups, further hip focused strengthening Plan of Care Dates Plan of Care Start Date 06/05/23 Plan of Care End Date 09/03/23 Electronically Signed by: Hamilton Willingham, PT 06/05/23 [id number] If you are in agreement with this Plan of Care, please return a signed and dated copy. I have reviewed this Plan of Care and certify that the skilled therapy services above are required to meet the patient?s needs. Physician Signature Date Printed Name and Credentials Clinical Instructor Signature Printed Name and Credentials
--- NOTE | 2023-06-10 08:13 | PT.OTN ---
Current Diagnoses Other chronic pain (06/10/23) Pain in right hip (06/10/23) Sacrococcygeal disorders, not elsewhere classified (06/10/23) Physical Therapy Treatment Note PT-OP-A Visit Information Start: 06/05/23 07: Freq: Status: Active Protocol: Document 06/10/23 08:10 ED (Rec: 06/10/23 08:13 ED [id number]) Out-Patient Physical Therapy Visit Information Visit Information Visit Type Treatment Note Visit Note 12/05 Visit Start Time 07:30 Visit Stop Time 08:10 Total Visit Minutes 40 PT-OP-B Current Condition Start: 06/05/23 07:23 Freq: Status: Active Protocol: Document 06/05/23 10:39 ED (Rec: 06/05/23 10:54 ED [id number]) Current Condition History of Current Condition Onset Date March Current Complaints R hip, SI pain History of Current Condition Pt states that she has been having R hip and SI pain since March of this year which she attributes to doing too much yard work in a day. The pain comes and goes but is most noticeable after prolonged walking. She used to walk 3 miles most days of the week but has since only been walking .5 miles or so. She notes she has a leg length discrepancy and wears a heel lift for her L LE. She states she has been trying to manage it c/ Tylenol and ice. PT-OP-C Subjective Start: 06/05/23 07: Freq: Status: Active Protocol: Document 06/10/23 08:10 ED (Rec: 06/10/23 08:13 ED [id number]) OP-PT Subjective Patient Comments Patient Comments Pt states that she has been doing her HEP and has no questions. She has also been following the walking program and slowly tapering up. PT-OP-K Range of Motion Start: 06/05/23 07:23 Freq: Status: Active Protocol: Document 06/05/23 10:39 ED (Rec: 06/05/23 10:54 ED [id number]) Hip Goniometric Range of Motion Hip Left Passive Hip ROM WFL Yes Testing Position Supine Comments no pain noted in hip or low back during ROM testing. Normal ROM observed, no obvious limitations Left Hip ROM WFL Yes Testing Position Supine PT-OP-L Special Tests Start: 06/05/23 07:23 Freq: Status: Active Protocol: Document 06/05/23 10:39 ED (Rec: 06/05/23 10:54 ED [id number]) Special Tests Lumbar Spine Special Tests Standing Flexion Test Results - Neural Special Tests- Lower Body Sciatic Nerve Tension Test Results - PT-OP-Q Treatments Start: 06/05/23 07:23 Freq: Status: Active Protocol: Document 06/10/23 08:10 ED (Rec: 06/10/23 08:13 ED [id number]) Cardio Equipment Treadmill Duration (Minutes) 5 Speed 1.8 Incline 1 Therapeutic Exercises Supine Exercises bridge Side bilateral Reps/Minutes x10 Comments DL, staggered, SL Sidelying Exercises hip abduction Side bilateral Reps/Minutes x10 Sitting Exercises LAQ Resistance L2 Equipment Used machine Reps/Minutes 1x20 pigeon stretch Side bilateral Reps/Minutes x30'' Standing Exercises heel raise Side bilateral Reps/Minutes x10-20 Comments DL, captain jara Therapeutic Activity Therapeutic Activity step ups Reps/Minutes [id number] Comments 10# on 8'' step no weight on 12'' step PT-OP-T Assessment and Plan Start: 06/05/23 07:23 Freq: Status: Active Protocol: Document 06/10/23 08:10 ED (Rec: 06/10/23 08:13 ED [id number]) Physical Therapy Assessment Goals Three Impairment LEFS Shelter Goal (LTG) Pt will improve LEFS score by 6 points to a score of 50. LTG Duration 4-6 weeks Two Impairment pain Short Term Goal (STG) Pt jesus report 20% improvement in R hip/SI pain when walking/ hiking. STG Duration 3 weeks Ladle Cleaner Goal (LTG) Pt will report 50% improvement in R hip/SI pain when walking /hiking. LTG Duration 6 weeks One Impairment HEP Short Term Goal (STG) Pt will report performing HEP >4 days/week. STG Duration 2 weeks Ladle Cleaner Goal (LTG) Pt will report performing HEP >4 days/week. LTG Duration 6 weeks Assessment Summary Assessment Pt did well during treatment today c/ no adverse events. Pt denied any pain during exercise interventions today. She did feel like step ups were more challenging for her R LE than her L LE. Informed to patient that PT will slowly increase intensity of exercises similar to her walking program. Physical Therapy Plan Frequency and Duration Frequency of Treatment 2x/Week Duration of treatment (weeks) 10 Plan of Care Start Date 06/05/23 Plan of Care End Date 09/03/23 Next Visit Focus/Plan Next Note Type Treatment Note Next Visit Plan TM, HEP (bridge, hip abd, pigeon stretch, heel raise), step ups, TKE, hip abduction machine
--- NOTE | 2023-06-23 08:21 | PT.OTN ---
Current Diagnoses Other chronic pain (06/23/23) Pain in right hip (06/23/23) Sacrococcygeal disorders, not elsewhere classified (06/23/23) Physical Therapy Treatment Note PT-OP-A Visit Information Start: 06/05/23 07:23 Freq: Status: Active Protocol: Document 06/23/23 08:18 ED (Rec: 06/23/23 08:21 ED [id number]) Out-Patient Physical Therapy Visit Information Visit Information Visit Type Treatment Note Visit Note 01/02 Visit Start Time 07:30 Visit Stop Time 08:15 Total Visit Minutes 45 PT-OP-B Current Condition Start: 06/05/23 07:23 Freq: Status: Active Protocol: Document 06/05/23 10:39 ED (Rec: 06/05/23 10:54 ED [id number]) Current Condition History of Current Condition Onset Date March Current Complaints R hip, SI pain History of Current Condition Pt states that she has been having R hip and SI pain since March of this year which she attributes to doing too much yard work in a day. The pain comes and goes but is most noticeable after prolonged walking. She used to walk 3 miles most days of the week but has since only been walking .5 miles or so. She notes she has a leg length discrepancy and wears a heel lift for her L LE. She states she has been trying to manage it c/ Tylenol and ice. PT-OP-C Subjective Start: 06/05/23 07:23 Freq: Status: Active Protocol: Document 06/10/23 08:10 ED (Rec: 06/10/23 08:13 ED [id number]) OP-PT Subjective Patient Comments Patient Comments Pt states that she has been doing her HEP and has no questions. She has also been following the walking program and slowly tapering up. PT-OP-K Range of Motion Start: 06/05/23 07:23 Freq: Status: Active Protocol: Document 06/05/23 10:39 ED (Rec: 06/05/23 10:54 ED [id number]) Hip Goniometric Range of Motion Hip Left Passive Hip ROM WFL Yes Testing Position Supine Comments no pain noted in hip or low back during ROM testing. Normal ROM observed, no obvious limitations Left Hip ROM WFL Yes Testing Position Supine PT-OP-L Special Tests Start: 06/05/23 07:23 Freq: Status: Active Protocol: Document 06/05/23 10:39 ED (Rec: 06/05/23 10:54 ED [id number]) Special Tests Lumbar Spine Special Tests Standing Flexion Test Results - Neural Special Tests- Lower Body Sciatic Nerve Tension Test Results - PT-OP-Q Treatments Start: 06/05/23 07:23 Freq: Status: Active Protocol: Document 06/23/23 08:18 ED (Rec: 06/23/23 08:21 ED [id number]) Cardio Equipment Recumbent Bicycle Duration (Minutes) 5 Resistance 5 Therapeutic Exercises Supine Exercises bridge Side bilateral Reps/Minutes x10 Comments DL, staggered, SL Sidelying Exercises glute matrix Reps/Minutes x10 hip abduction Side bilateral Reps/Minutes x10 Sitting Exercises LAQ Resistance L2 Equipment Used machine Reps/Minutes 1x20 pigeon stretch Side bilateral Reps/Minutes x30'' Standing Exercises heel raise Side bilateral Reps/Minutes x10-20 Comments DL, captain jara Therapeutic Activity Therapeutic Activity step ups Reps/Minutes [id number] Comments elevated step up Bonner step up PT-OP-T Assessment and Plan Start: 06/05/23 07:23 Freq: Status: Active Protocol: Document 06/23/23 08:18 ED (Rec: 06/23/23 08:21 ED [id number]) Physical Therapy Assessment Goals Three Impairment LEFS Shelter Goal (LTG) Pt will improve LEFS score by 6 points to a score of 50. LTG Duration 4-6 weeks Two Impairment pain Short Term Goal (STG) Pt jesus report 20% improvement in R hip/SI pain when walking/ hiking. STG Duration 3 weeks Shelter Goal (LTG) Pt will report 50% improvement in R hip/SI pain when walking /hiking. LTG Duration 6 weeks One Impairment HEP Short Term Goal (STG) Pt will report performing HEP >4 days/week. STG Duration 2 weeks Internet Marketing Executive Goal (LTG) Pt will report performing HEP >4 days/week. LTG Duration 6 weeks Assessment Summary Assessment Pt had noticeable difference when performing step ups c/ minimal UE support. Pt able to easily perform step up and step downs using L LE but had great difficulty when using R LE. Pt also verbalized it being more difficult.
--- NOTE | 2023-06-25 08:13 | PT.OTN ---
Current Diagnoses Other chronic pain (06/25/23) Pain in right hip (06/25/23) Sacrococcygeal disorders, not elsewhere classified (06/25/23) Physical Therapy Treatment Note PT-OP-A Visit Information Start: 06/05/23 07:23 Freq: Status: Active Protocol: Document 06/25/23 08:10 ED (Rec: 06/25/23 08:13 ED [id number]) Out-Patient Physical Therapy Visit Information Visit Information Visit Type Treatment Note Visit Note 02/02 Visit Start Time 07:30 Visit Stop Time 08:10 Total Visit Minutes 40 PT-OP-B Current Condition Start: 06/05/23 07:23 Freq: Status: Active Protocol: Document 06/05/23 10:39 ED (Rec: 06/05/23 10:54 ED [id number]) Current Condition History of Current Condition Onset Date March Current Complaints R hip, SI pain History of Current Condition Pt states that she has been having R hip and SI pain since March of this year which she attributes to doing too much yard work in a day. The pain comes and goes but is most noticeable after prolonged walking. She used to walk 3 miles most days of the week but has since only been walking .5 miles or so. She notes she has a leg length discrepancy and wears a heel lift for her L LE. She states she has been trying to manage it c/ Tylenol and ice. PT-OP-C Subjective Start: 06/05/23 07:23 Freq: Status: Active Protocol: Document 06/25/23 08:10 ED (Rec: 06/25/23 08:13 ED [id number]) OP-PT Subjective Patient Comments Patient Comments Pt states that she went on a 25' walk the other day and her R hip felt fine. She has been following the walking program and gradually increasing her walking duration. PT-OP-K Range of Motion Start: 06/05/23 07:23 Freq: Status: Active Protocol: Document 06/05/23 10:39 ED (Rec: 06/05/23 10:54 ED [id number]) Hip Goniometric Range of Motion Hip Left Passive Hip ROM WFL Yes Testing Position Supine Comments no pain noted in hip or low back during ROM testing. Normal ROM observed, no obvious limitations Left Hip ROM WFL Yes Testing Position Supine PT-OP-L Special Tests Start: 06/05/23 07:23 Freq: Status: Active Protocol: Document 06/05/23 10:39 ED (Rec: 06/05/23 10:54 ED [id number]) Special Tests Lumbar Spine Special Tests Standing Flexion Test Results - Neural Special Tests- Lower Body Sciatic Nerve Tension Test Results - PT-OP-Q Treatments Start: 06/05/23 07:23 Freq: Status: Active Protocol: Document 06/25/23 08:10 ED (Rec: 06/25/23 08:13 ED [id number]) Therapeutic Exercises Supine Exercises bridge Side bilateral Reps/Minutes x10 Comments DL, staggered, SL, feet elevated Sidelying Exercises glute matrix Sidelying Exercise Name clamshell, reverse clamshell, s/l hip flexion, s/l hip abduction Reps/Minutes x10 Sitting Exercises LAQ Resistance L1-L2 Equipment Used machine Reps/Minutes 1x20 Comments singe leg Therapeutic Activity Therapeutic Activity squat Name sit<>stand Reps/Minutes 2x10 c/ 10# Comments staggered foot position step ups Reps/Minutes [id number] Comments elevated step up Bonner step up PT-OP-T Assessment and Plan Start: 06/05/23 07:23 Freq: Status: Active Protocol: Document 06/25/23 08:10 ED (Rec: 06/25/23 08:13 ED [id number]) Physical Therapy Assessment Goals Three Impairment LEFS Alf Goal (LTG) Pt will improve LEFS score by 6 points to a score of 50. LTG Duration 4-6 weeks Two Impairment pain Short Term Goal (STG) Pt jesus report 20% improvement in R hip/SI pain when walking/ hiking. STG Duration 3 weeks Pleat Patternmaker Goal (LTG) Pt will report 50% improvement in R hip/SI pain when walking /hiking. LTG Duration 6 weeks One Impairment HEP Short Term Goal (STG) Pt will report performing HEP >4 days/week. STG Duration 2 weeks Alf Goal (LTG) Pt will report performing HEP >4 days/week. LTG Duration 6 weeks Physical Therapy Plan Frequency and Duration Frequency of Treatment 2x/Week Duration of treatment (weeks) 10 Plan of Care Start Date 06/05/23 Plan of Care End Date 09/03/23 Next Visit Focus/Plan Next Note Type Treatment Note Next Visit Plan bike, bridge progression, glute matrix, eccentric leg press, LAQ HEP (bridge, hip abd, pigeon stretch, heel raise), step ups , TKE, hip abduction machine
--- NOTE | 2023-06-30 08:12 | PT.OTN ---
Current Diagnoses Other chronic pain (06/30/23) Pain in right hip (06/30/23) Sacrococcygeal disorders, not elsewhere classified (06/30/23) Physical Therapy Treatment Note PT-OP-A Visit Information Start: 06/05/23 07:23 Freq: Status: Active Protocol: Document 06/30/23 08:06 ED (Rec: 06/30/23 08:11 ED [id number]) Out-Patient Physical Therapy Visit Information Visit Information Visit Type Treatment Note Visit Note 10 Visit Start Time 07:30 Visit Stop Time 08:10 Total Visit Minutes 40 PT-OP-B Current Condition Start: 06/05/23 07:23 Freq: Status: Active Protocol: Document 06/05/23 10:39 ED (Rec: 06/05/23 10:54 ED [id number]) Current Condition History of Current Condition Onset Date March Current Complaints R hip, SI pain History of Current Condition Pt states that she has been having R hip and SI pain since March of this year which she attributes to doing too much yard work in a day. The pain comes and goes but is most noticeable after prolonged walking. She used to walk 3 miles most days of the week but has since only been walking .5 miles or so. She notes she has a leg length discrepancy and wears a heel lift for her L LE. She states she has been trying to manage it c/ Tylenol and ice. PT-OP-C Subjective Start: 06/05/23 07:23 Freq: Status: Active Protocol: Document 06/30/23 08:06 ED (Rec: 06/30/23 08:11 ED [id number]) OP-PT Subjective Patient Comments Patient Comments Pt states that she is going to start walking 30' this week. No complaints of pain on her walks. PT-OP-K Range of Motion Start: 06/05/23 07:23 Freq: Status: Active Protocol: Document 06/05/23 10:39 ED (Rec: 06/05/23 10:54 ED [id number]) Hip Goniometric Range of Motion Hip Left Passive Hip ROM WFL Yes Testing Position Supine Comments no pain noted in hip or low back during ROM testing. Normal ROM observed, no obvious limitations Left Hip ROM WFL Yes Testing Position Supine PT-OP-L Special Tests Start: 06/05/23 07:23 Freq: Status: Active Protocol: Document 06/05/23 10:39 ED (Rec: 06/05/23 10:54 ED [id number]) Special Tests Lumbar Spine Special Tests Standing Flexion Test Results - Neural Special Tests- Lower Body Sciatic Nerve Tension Test Results - PT-OP-Q Treatments Start: 06/05/23 07:23 Freq: Status: Active Protocol: Document 06/30/23 08:06 ED (Rec: 06/30/23 08:11 ED [id number]) Therapeutic Exercises Supine Exercises leg press Resistance 50# Reps/Minutes 2x15 Comments 2 up 1 down bridge Side bilateral Reps/Minutes x10 Comments DL, staggered, SL, feet elevated Sidelying Exercises glute matrix Sidelying Exercise Name clamshell, reverse clamshell, s/l hip flexion, s/l hip abduction Reps/Minutes x10 Comments manual resistance Sitting Exercises LAQ Resistance L2 Equipment Used machine Reps/Minutes 3x15 Comments singe leg PT-OP-T Assessment and Plan Start: 06/05/23 07:23 Freq: Status: Active Protocol: Document 06/30/23 08:06 ED (Rec: 06/30/23 08:11 ED [id number]) Physical Therapy Assessment Goals Three Impairment LEFS Senior Etl Developer Goal (LTG) Pt will improve LEFS score by 6 points to a score of 50. LTG Duration 4-6 weeks Two Impairment pain Short Term Goal (STG) Pt jesus report 20% improvement in R hip/SI pain when walking/ hiking. STG Duration 3 weeks Senior Etl Developer Goal (LTG) Pt will report 50% improvement in R hip/SI pain when walking /hiking. LTG Duration 6 weeks One Impairment HEP Short Term Goal (STG) Pt will report performing HEP >4 days/week. STG Duration 2 weeks Fci Goal (LTG) Pt will report performing HEP >4 days/week. LTG Duration 6 weeks Assessment Summary Assessment Pt continuing to tolerate exercises well that are focused on strenthening stimulus to knees and hips. Continues to be able to progress her walking routine duration c/o increases in pain . Physical Therapy Plan Frequency and Duration Frequency of Treatment 2x/Week Duration of treatment (weeks) 10 Plan of Care Start Date 06/05/23 Plan of Care End Date 09/03/23 Next Visit Focus/Plan Next Note Type Treatment Note Next Visit Plan bike, bridge progression, glute matrix, eccentric leg press, step ups, LAQ HEP (bridge, hip abd, pigeon stretch, heel raise), step ups , TKE, hip abduction machine
--- NOTE | 2023-07-02 07:46 | PT-OP ANOTE ---
PT left VM for patient about missed visit at 7:30 this morning. Reminded patient of next scheduled visit.
--- NOTE | 2023-07-03 08:56 | PT.OTN ---
Current Diagnoses Other chronic pain (07/03/23) Pain in right hip (07/03/23) Sacrococcygeal disorders, not elsewhere classified (07/03/23) Physical Therapy Treatment Note PT-OP-A Visit Information Start: 06/05/23 07:23 Freq: Status: Active Protocol: Document 07/03/23 08:52 ED (Rec: 07/03/23 08:56 ED [id number]) Out-Patient Physical Therapy Visit Information Visit Information Visit Type Treatment Note Visit Note 04/04 Visit Start Time 08:15 Visit Stop Time 08:55 Total Visit Minutes 40 PT-OP-B Current Condition Start: 06/05/23 07:23 Freq: Status: Active Protocol: Document 06/05/23 10:39 ED (Rec: 06/05/23 10:54 ED [id number]) Current Condition History of Current Condition Onset Date March Current Complaints R hip, SI pain History of Current Condition Pt states that she has been having R hip and SI pain since March of this year which she attributes to doing too much yard work in a day. The pain comes and goes but is most noticeable after prolonged walking. She used to walk 3 miles most days of the week but has since only been walking .5 miles or so. She notes she has a leg length discrepancy and wears a heel lift for her L LE. She states she has been trying to manage it c/ Tylenol and ice. PT-OP-C Subjective Start: 06/05/23 07:23 Freq: Status: Active Protocol: Document 07/03/23 08:52 ED (Rec: 07/03/23 08:56 ED [id number]) OP-PT Subjective Patient Comments Patient Comments Pt is now walking 30 minutes and is not having any pain in her hip. She is doing a 5k walk tomorrow for a [employer] event. PT-OP-K Range of Motion Start: 06/05/23 07:23 Freq: Status: Active Protocol: Document 06/05/23 10:39 ED (Rec: 06/05/23 10:54 ED [id number]) Hip Goniometric Range of Motion Hip Left Passive Hip ROM WFL Yes Testing Position Supine Comments no pain noted in hip or low back during ROM testing. Normal ROM observed, no obvious limitations Left Hip ROM WFL Yes Testing Position Supine PT-OP-L Special Tests Start: 06/05/23 07:23 Freq: Status: Active Protocol: Document 06/05/23 10:39 ED (Rec: 06/05/23 10:54 ED [id number]) Special Tests Lumbar Spine Special Tests Standing Flexion Test Results - Neural Special Tests- Lower Body Sciatic Nerve Tension Test Results - PT-OP-Q Treatments Start: 06/05/23 07:23 Freq: Status: Active Protocol: Document 07/03/23 08:52 ED (Rec: 07/03/23 08:56 ED [id number]) Cardio Equipment Recumbent Bicycle Duration (Minutes) 5 Resistance 5 Therapeutic Exercises Supine Exercises leg press Resistance 50# Reps/Minutes 2x15 Comments 2 up 1 down Sidelying Exercises glute matrix Sidelying Exercise Name clamshell, reverse clamshell, s/l hip flexion, s/l hip abduction Reps/Minutes x10 Comments manual resistance Sitting Exercises LAQ Resistance L2 Equipment Used machine Reps/Minutes 3x15 Comments progress to L3 Standing Exercises banded walk Standing Exercise Name lateral band walk Resistance green loop Reps/Minutes 1x15' Therapeutic Activity Therapeutic Activity step ups Reps/Minutes 3x20-25 Comments 12'' elevated step up PT-OP-T Assessment and Plan Start: 06/05/23 07:23 Freq: Status: Active Protocol: Document 07/03/23 08:52 ED (Rec: 07/03/23 08:56 ED [id number]) Physical Therapy Assessment Goals Three Impairment LEFS Intermediate Goal (LTG) Pt will improve LEFS score by 6 points to a score of 50. LTG Duration 4-6 weeks Two Impairment pain Short Term Goal (STG) Pt jesus report 20% improvement in R hip/SI pain when walking/ hiking. STG Duration 3 weeks Intermediate Goal (LTG) Pt will report 50% improvement in R hip/SI pain when walking /hiking. LTG Duration 6 weeks One Impairment HEP Short Term Goal (STG) Pt will report performing HEP >4 days/week. STG Duration 2 weeks Intermediate Goal (LTG) Pt will report performing HEP >4 days/week. LTG Duration 6 weeks Assessment Summary Assessment Pt gradually improving in activity tolerance in regards to hip pain. Pt reported being able to walk for 30 consecutive minutes c/o hip pain. PT continued c/ hip strengthening movements and knee strengthening movements such as leg press, step ups, and knee extensions. Physical Therapy Plan Frequency and Duration Frequency of Treatment 2x/Week Duration of treatment (weeks) 10 Plan of Care Start Date 06/05/23 Plan of Care End Date 09/03/23 Next Visit Focus/Plan Next Note Type Treatment Note Next Visit Plan bike, bridge progression, glute matrix, eccentric leg press, step ups, LAQ (L3) HEP (bridge, hip abd, pigeon stretch, heel raise), step ups , TKE, hip abduction machine
--- NOTE | 2023-07-07 09:09 | PT.OTN ---
Current Diagnoses Other chronic pain (07/07/23) Pain in right hip (07/07/23) Sacrococcygeal disorders, not elsewhere classified (07/07/23) Physical Therapy Treatment Note PT-OP-A Visit Information Start: 06/05/23 07: Freq: Status: Active Protocol: Document 07/07/23 09:04 ED (Rec: 07/07/23 09:09 ED [id number]) Out-Patient Physical Therapy Visit Information Visit Information Visit Type Treatment Note Visit Note 05/04 Visit Start Time 08:30 Visit Stop Time 09:05 Total Visit Minutes 35 PT-OP-B Current Condition Start: 06/05/23 07:23 Freq: Status: Active Protocol: Document 06/05/23 10:39 ED (Rec: 06/05/23 10:54 ED [id number]) Current Condition History of Current Condition Onset Date March Current Complaints R hip, SI pain History of Current Condition Pt states that she has been having R hip and SI pain since March of this year which she attributes to doing too much yard work in a day. The pain comes and goes but is most noticeable after prolonged walking. She used to walk 3 miles most days of the week but has since only been walking .5 miles or so. She notes she has a leg length discrepancy and wears a heel lift for her L LE. She states she has been trying to manage it c/ Tylenol and ice. PT-OP-C Subjective Start: 06/05/23 07:23 Freq: Status: Active Protocol: Document 07/07/23 09:04 ED (Rec: 07/07/23 09:09 ED [id number]) OP-PT Subjective Patient Comments Patient Comments Pt able to walk for 2 miles for a [employer] event this weekend c/o hip pain. She states that she most frequently has hip discomfort when getting up in the morning but otherwise her hip is feeling improved. PT-OP-K Range of Motion Start: 06/05/23 07:23 Freq: Status: Active Protocol: Document 06/05/23 10:39 ED (Rec: 06/05/23 10:54 ED [id number]) Hip Goniometric Range of Motion Hip Left Passive Hip ROM WFL Yes Testing Position Supine Comments no pain noted in hip or low back during ROM testing. Normal ROM observed, no obvious limitations Left Hip ROM WFL Yes Testing Position Supine PT-OP-L Special Tests Start: 06/05/23 07:23 Freq: Status: Active Protocol: Document 06/05/23 10:39 ED (Rec: 06/05/23 10:54 ED [id number]) Special Tests Lumbar Spine Special Tests Standing Flexion Test Results - Neural Special Tests- Lower Body Sciatic Nerve Tension Test Results - PT-OP-Q Treatments Start: 06/05/23 07:23 Freq: Status: Active Protocol: Document 07/07/23 09:04 ED (Rec: 07/07/23 09:09 ED [id number]) Cardio Equipment Recumbent Bicycle Duration (Minutes) 5 Resistance 5 Therapeutic Exercises Supine Exercises bridge Side bilateral Reps/Minutes x10 Comments DL, staggered, SL, feet elevated Sidelying Exercises glute matrix Sidelying Exercise Name clamshell, reverse clamshell, s/l hip flexion, s/l hip abduction Reps/Minutes x10 Comments manual resistance Sitting Exercises LAQ Resistance L3 Equipment Used machine Reps/Minutes 3x15 Standing Exercises banded walk Standing Exercise Name lateral band walk Resistance green loop Reps/Minutes 1x15' Therapeutic Activity Therapeutic Activity step ups Reps/Minutes [id number] Comments 12'' elevated step up c/ 10# 8'' 2x10 coombs step up PT-OP-T Assessment and Plan Start: 06/05/23 07:23 Freq: Status: Active Protocol: Document 07/07/23 09:04 ED (Rec: 07/07/23 09:09 ED [id number]) Physical Therapy Assessment Goals Three Impairment LEFS Retirement Goal (LTG) Pt will improve LEFS score by 6 points to a score of 50. LTG Duration 4-6 weeks Two Impairment pain Short Term Goal (STG) Pt jesus report 20% improvement in R hip/SI pain when walking/ hiking. STG Duration 3 weeks Retirement Goal (LTG) Pt will report 50% improvement in R hip/SI pain when walking /hiking. LTG Duration 6 weeks One Impairment HEP Short Term Goal (STG) Pt will report performing HEP >4 days/week. STG Duration 2 weeks Spring Upholsterer Goal (LTG) Pt will report performing HEP >4 days/week. LTG Duration 6 weeks Assessment Summary Assessment Pt able to perform all activities today c/o hip pain. Exercises have been progressed in weight and difficulty and she has been able to perform them c/o hip irritation. She is now walking up to 2 miles or 30 minutes comfortably.
--- NOTE | 2023-07-10 13:30 | PT.OTN ---
Current Diagnoses Other chronic pain (07/10/23) Pain in right hip (07/10/23) Sacrococcygeal disorders, not elsewhere classified (07/10/23) Physical Therapy Treatment Note PT-OP-A Visit Information Start: 06/05/23 07: Freq: Status: Active Protocol: Document 07/10/23 13:26 ED (Rec: 07/10/23 13:30 ED [id number]) Out-Patient Physical Therapy Visit Information Visit Information Visit Type Treatment Note Visit Note 06/04 Visit Start Time 12:45 Visit Stop Time 13:25 Total Visit Minutes 40 PT-OP-B Current Condition Start: 06/05/23 07:23 Freq: Status: Active Protocol: Document 06/05/23 10:39 ED (Rec: 06/05/23 10:54 ED [id number]) Current Condition History of Current Condition Onset Date March Current Complaints R hip, SI pain History of Current Condition Pt states that she has been having R hip and SI pain since March of this year which she attributes to doing too much yard work in a day. The pain comes and goes but is most noticeable after prolonged walking. She used to walk 3 miles most days of the week but has since only been walking .5 miles or so. She notes she has a leg length discrepancy and wears a heel lift for her L LE. She states she has been trying to manage it c/ Tylenol and ice. PT-OP-C Subjective Start: 06/05/23 07: Freq: Status: Active Protocol: Document 07/10/23 13:26 ED (Rec: 07/10/23 13:30 ED [id number]) OP-PT Subjective Patient Comments Patient Comments Pt currently walking 45' and not having any pain during walks. States her hip is feeling good for the most part . Is doing her HEP regularly. PT-OP-K Range of Motion Start: 06/05/23 07:23 Freq: Status: Active Protocol: Document 06/05/23 10:39 ED (Rec: 06/05/23 10:54 ED [id number]) Hip Goniometric Range of Motion Hip Left Passive Hip ROM WFL Yes Testing Position Supine Comments no pain noted in hip or low back during ROM testing. Normal ROM observed, no obvious limitations Left Hip ROM WFL Yes Testing Position Supine PT-OP-L Special Tests Start: 06/05/23 07:23 Freq: Status: Active Protocol: Document 06/05/23 10:39 ED (Rec: 06/05/23 10:54 ED [id number]) Special Tests Lumbar Spine Special Tests Standing Flexion Test Results - Neural Special Tests- Lower Body Sciatic Nerve Tension Test Results - PT-OP-Q Treatments Start: 06/05/23 07:23 Freq: Status: Active Protocol: Document 07/10/23 13:26 ED (Rec: 07/10/23 13:30 ED [id number]) Cardio Equipment Recumbent Bicycle Duration (Minutes) 5 Resistance 5 Therapeutic Exercises Standing Exercises banded walk Standing Exercise Name lateral band walk Resistance green loop Reps/Minutes 1x15' Therapeutic Activity Therapeutic Activity hinge Name B stance RDL Reps/Minutes 2x8 Comments purple dowel squat Name single leg squat to chair Reps/Minutes 3x6-10 step ups Name cross over step up Reps/Minutes [id number] PT-OP-T Assessment and Plan Start: 06/05/23 07:23 Freq: Status: Active Protocol: Document 07/10/23 13:26 ED (Rec: 07/10/23 13:30 ED [id number]) Physical Therapy Assessment Goals Three Impairment LEFS Truck Packer Goal (LTG) Pt will improve LEFS score by 6 points to a score of 50. LTG Duration 4-6 weeks Two Impairment pain Short Term Goal (STG) Pt jesus report 20% improvement in R hip/SI pain when walking/ hiking. STG Duration 3 weeks Truck Packer Goal (LTG) Pt will report 50% improvement in R hip/SI pain when walking /hiking. LTG Duration 6 weeks One Impairment HEP Short Term Goal (STG) Pt will report performing HEP >4 days/week. STG Duration 2 weeks -MET Longterm Goal (LTG) Pt will report performing HEP >4 days/week. LTG Duration 6 weeks Assessment Summary Assessment Pt able to perform all activities today c/o hip pain. Exercises have been progressed in weight and difficulty and she has been able to perform them c/o hip irritation. Pt will be gone next week. Physical Therapy Plan Frequency and Duration Frequency of Treatment 2x/Week Duration of treatment (weeks) 10 Plan of Care Start Date 06/05/23 Plan of Care End Date 09/03/23 Next Visit Focus/Plan Next Note Type Treatment Note Next Visit Plan bike, eccentric leg press, single leg sit<>stand (print), B stancdce RDL & cross over step ups (print), LAQ (L3), incline TM HEP (bridge, hip abd, pigeon stretch, heel raise), step ups , TKE, hip abduction machine
--- NOTE | 2023-07-21 08:12 | PT.OTN ---
Current Diagnoses Other chronic pain (07/21/23) Pain in right hip (07/21/23) Sacrococcygeal disorders, not elsewhere classified (07/21/23) Physical Therapy Treatment Note PT-OP-A Visit Information Start: 06/05/23 07:23 Freq: Status: Active Protocol: Document 07/21/23 08:09 ED (Rec: 07/21/23 08:12 ED [id number]) Out-Patient Physical Therapy Visit Information Visit Information Visit Type Treatment Note Visit Note 07/05 Visit Start Time 07:30 Visit Stop Time 08:10 Total Visit Minutes 40 PT-OP-B Current Condition Start: 06/05/23 07:23 Freq: Status: Active Protocol: Document 06/05/23 10:39 ED (Rec: 06/05/23 10:54 ED [id number]) Current Condition History of Current Condition Onset Date March Current Complaints R hip, SI pain History of Current Condition Pt states that she has been having R hip and SI pain since March of this year which she attributes to doing too much yard work in a day. The pain comes and goes but is most noticeable after prolonged walking. She used to walk 3 miles most days of the week but has since only been walking .5 miles or so. She notes she has a leg length discrepancy and wears a heel lift for her L LE. She states she has been trying to manage it c/ Tylenol and ice. PT-OP-C Subjective Start: 06/05/23 07:23 Freq: Status: Active Protocol: Document 07/21/23 08:09 ED (Rec: 07/21/23 08:12 ED [id number]) OP-PT Subjective Patient Comments Patient Comments Pt states that she has been able to walk for 45' and denies hip pain during or after. States she has pain in the mornings and after prolonged sedentary behavior. PT-OP-K Range of Motion Start: 06/05/23 07:23 Freq: Status: Active Protocol: Document 06/05/23 10:39 ED (Rec: 06/05/23 10:54 ED [id number]) Hip Goniometric Range of Motion Hip Left Passive Hip ROM WFL Yes Testing Position Supine Comments no pain noted in hip or low back during ROM testing. Normal ROM observed, no obvious limitations Left Hip ROM WFL Yes Testing Position Supine PT-OP-L Special Tests Start: 06/05/23 07:23 Freq: Status: Active Protocol: Document 06/05/23 10:39 ED (Rec: 06/05/23 10:54 ED [id number]) Special Tests Lumbar Spine Special Tests Standing Flexion Test Results - Neural Special Tests- Lower Body Sciatic Nerve Tension Test Results - PT-OP-Q Treatments Start: 06/05/23 07:23 Freq: Status: Active Protocol: Document 07/21/23 08:09 ED (Rec: 07/21/23 08:12 ED [id number]) Cardio Equipment Recumbent Bicycle Duration (Minutes) 5 Resistance 5 Therapeutic Exercises Supine Exercises bridge Side bilateral Reps/Minutes x10 Comments DL, staggered, SL, feet elevated Sitting Exercises hip abd Sitting Exercise Name machine Resistance L3 Reps/Minutes 2x20 LAQ Resistance L3 Equipment Used machine Reps/Minutes 3x15 Therapeutic Activity Therapeutic Activity hinge Name B stance RDL Reps/Minutes 2x8 Comments purple dowel squat Name single leg squat to chair Reps/Minutes 3x6-10 PT-OP-T Assessment and Plan Start: 06/05/23 07:23 Freq: Status: Active Protocol: Document 07/21/23 08:09 ED (Rec: 07/21/23 08:12 ED [id number]) Physical Therapy Assessment Goals Three Impairment LEFS Penitentiary Goal (LTG) Pt will improve LEFS score by 6 points to a score of 50. LTG Duration 4-6 weeks Two Impairment pain Short Term Goal (STG) Pt jesus report 20% improvement in R hip/SI pain when walking/ hiking. STG Duration 3 weeks Penitentiary Goal (LTG) Pt will report 50% improvement in R hip/SI pain when walking /hiking. LTG Duration 6 weeks One Impairment HEP Short Term Goal (STG) Pt will report performing HEP >4 days/week. STG Duration 2 weeks -MET Operations And Maintenance Specialist Goal (LTG) Pt will report performing HEP >4 days/week. LTG Duration 6 weeks Assessment Summary Assessment Pt able to perform all activities today c/o hip pain. Exercises have been progressed in weight and difficulty and she has been able to perform them c/o hip irritation. Pt will be gone next week. Physical Therapy Plan Next Visit Focus/Plan Next Note Type Progress Note Next Visit Plan LEFS, create robust HEP, ;bike , eccentric leg press, single leg sit<>stand (print), B stancdce RDL & cross over step ups (print), LAQ (L3), incline TM
--- NOTE | 2023-07-23 08:13 | PT.OTN ---
Current Diagnoses Other chronic pain (07/23/23) Pain in right hip (07/23/23) Sacrococcygeal disorders, not elsewhere classified (07/23/23) Physical Therapy Treatment Note PT-OP-A Visit Information Start: 06/05/23 07:23 Freq: Status: Active Protocol: Document 07/23/23 08:05 ED (Rec: 07/23/23 08:13 ED [id number]) Out-Patient Physical Therapy Visit Information Visit Information Visit Type Progress Note Visit Note 08/04 Visit Start Time 07:25 Visit Stop Time 08:10 Total Visit Minutes 45 Visit Number 10 PT-OP-B Current Condition Start: 06/05/23 07: Freq: Status: Active Protocol: Document 06/05/23 10:39 ED (Rec: 06/05/23 10:54 ED [id number]) Current Condition History of Current Condition Onset Date March Current Complaints R hip, SI pain History of Current Condition Pt states that she has been having R hip and SI pain since March of this year which she attributes to doing too much yard work in a day. The pain comes and goes but is most noticeable after prolonged walking. She used to walk 3 miles most days of the week but has since only been walking .5 miles or so. She notes she has a leg length discrepancy and wears a heel lift for her L LE. She states she has been trying to manage it c/ Tylenol and ice. PT-OP-C Subjective Start: 06/05/23 07:23 Freq: Status: Active Protocol: Document 07/23/23 08:05 ED (Rec: 07/23/23 08:13 ED [id number]) OP-PT Subjective Patient Comments Patient Comments Pt states that she has been able to walk for 45' and denies hip pain during or after. States she has pain in the mornings and after prolonged sedentary behavior. Would like to schedule more sessions for 1x/week. Patient Questionnaires Lower Extremity Functional Scale LEFS Score 69 / 80 LEFS Impairment 1 to 19% Impaired (Score 63-79 ) PT-OP-K Range of Motion Start: 06/05/23 07:23 Freq: Status: Active Protocol: Document 06/05/23 10:39 ED (Rec: 06/05/23 10:54 ED [id number]) Hip Goniometric Range of Motion Hip Left Passive Hip ROM WFL Yes Testing Position Supine Comments no pain noted in hip or low back during ROM testing. Normal ROM observed, no obvious limitations Left Hip ROM WFL Yes Testing Position Supine PT-OP-L Special Tests Start: 06/05/23 07:23 Freq: Status: Active Protocol: Document 06/05/23 10:39 ED (Rec: 06/05/23 10:54 ED [id number]) Special Tests Lumbar Spine Special Tests Standing Flexion Test Results - Neural Special Tests- Lower Body Sciatic Nerve Tension Test Results - PT-OP-Q Treatments Start: 06/05/23 07:23 Freq: Status: Active Protocol: Document 07/23/23 08:05 ED (Rec: 07/23/23 08:13 ED [id number]) Cardio Equipment Recumbent Bicycle Duration (Minutes) 5 Resistance 5 Treadmill Duration (Minutes) 5 Speed 1.5 Incline 5 Therapeutic Exercises Supine Exercises HIP THRUST Reps/Minutes x10 Comments DL, SL bridge Side bilateral Reps/Minutes x10 Comments DL, staggered, SL, feet elevated Therapeutic Activity Therapeutic Activity squat Name squat Reps/Minutes 2x10 Comments 10# step ups Name step up variations Reps/Minutes 2p22-13 Comments no weight; UE assistance for balance PT-OP-T Assessment and Plan Start: 06/05/23 07:23 Freq: Status: Active Protocol: Document 07/23/23 08:05 ED (Rec: 07/23/23 08:13 ED [id number]) Physical Therapy Assessment Goals Three Impairment LEFS Sourcing Coordinator Goal (LTG) Pt will improve LEFS score by 6 points to a score of 50. LTG Duration 4-6 weeks -MET Two Impairment pain Short Term Goal (STG) Pt jesus report 20% improvement in R hip/SI pain when walking/ hiking. STG Duration 3 weeks -MET Correction Goal (LTG) Pt will report 50% improvement in R hip/SI pain when walking /hiking. LTG Duration 6 weeks One Impairment HEP Short Term Goal (STG) Pt will report performing HEP >4 days/week. STG Duration 2 weeks -MET Sourcing Coordinator Goal (LTG) Pt will report performing HEP >4 days/week. LTG Duration 6 weeks Assessment Summary Assessment Pt improved LEFS score from 56 /80 to 69/80 meeting criteria for MCID. Pt has also improved walknig tolerance and has been able to go for 45'. PT will change gears and switch to 1x/week with focus on improving her HEP so she can be more independent in rehab independently. Physical Therapy Plan Next Visit Focus/Plan Next Note Type Treatment Note Next Visit Plan bike, bridge variations, hip thrust, squat, step ups, hinge , TM at end review her HEP
--- NOTE | 2023-07-29 08:55 | PT.OTN ---
Current Diagnoses Other chronic pain (07/29/23) Pain in right hip (07/29/23) Sacrococcygeal disorders, not elsewhere classified (07/29/23) Physical Therapy Treatment Note PT-OP-A Visit Information Start: 06/05/23 07: Freq: Status: Active Protocol: Document 07/29/23 08:50 ED (Rec: 07/29/23 08:55 ED [id number]) Out-Patient Physical Therapy Visit Information Visit Information Visit Type Treatment Note Visit Note 11/04 Visit Start Time 08:15 Visit Stop Time 08:55 Total Visit Minutes 40 Visit Number 11 PT-OP-B Current Condition Start: 06/05/23 07:23 Freq: Status: Active Protocol: Document 06/05/23 10:39 ED (Rec: 06/05/23 10:54 ED [id number]) Current Condition History of Current Condition Onset Date March Current Complaints R hip, SI pain History of Current Condition Pt states that she has been having R hip and SI pain since March of this year which she attributes to doing too much yard work in a day. The pain comes and goes but is most noticeable after prolonged walking. She used to walk 3 miles most days of the week but has since only been walking .5 miles or so. She notes she has a leg length discrepancy and wears a heel lift for her L LE. She states she has been trying to manage it c/ Tylenol and ice. PT-OP-C Subjective Start: 06/05/23 07:23 Freq: Status: Active Protocol: Document 07/29/23 08:50 ED (Rec: 07/29/23 08:55 ED [id number]) OP-PT Subjective Patient Comments Patient Comments Pt states that her hip has been bothering her a little bit recently and thinks it's because she's been walking a really big dog. States she walks everyday for 45-60 minutes. PT-OP-K Range of Motion Start: 06/05/23 07:23 Freq: Status: Active Protocol: Document 06/05/23 10:39 ED (Rec: 06/05/23 10:54 ED [id number]) Hip Goniometric Range of Motion Hip Left Passive Hip ROM WFL Yes Testing Position Supine Comments no pain noted in hip or low back during ROM testing. Normal ROM observed, no obvious limitations Left Hip ROM WFL Yes Testing Position Supine PT-OP-L Special Tests Start: 06/05/23 07:23 Freq: Status: Active Protocol: Document 06/05/23 10:39 ED (Rec: 06/05/23 10:54 ED [id number]) Special Tests Lumbar Spine Special Tests Standing Flexion Test Results - Neural Special Tests- Lower Body Sciatic Nerve Tension Test Results - PT-OP-Q Treatments Start: 06/05/23 07:23 Freq: Status: Active Protocol: Document 07/29/23 08:50 ED (Rec: 07/29/23 08:55 ED [id number]) Cardio Equipment Recumbent Bicycle Duration (Minutes) 5 Resistance 5 Therapeutic Exercises Supine Exercises bridge Side bilateral Reps/Minutes x10 Comments DL, staggered, SL, feet elevated Sidelying Exercises glute matrix Sidelying Exercise Name clamshell, reverse clamshell, s/l hip flexion, s/l hip abduction Reps/Minutes x10 Comments manual resistance Sitting Exercises quad stretch Reps/Minutes 2x30'' pigeon stretch Sitting Exercise Name quadruped post capsule stretch Reps/Minutes 2x30'' PT-OP-T Assessment and Plan Start: 06/05/23 07:23 Freq: Status: Active Protocol: Document 07/29/23 08:50 ED (Rec: 07/29/23 08:55 ED [id number]) Physical Therapy Assessment Goals Three Impairment LEFS Surgical Technologist Goal (LTG) Pt will improve LEFS score by 6 points to a score of 50. LTG Duration 4-6 weeks -MET Two Impairment pain Short Term Goal (STG) Pt jesus report 20% improvement in R hip/SI pain when walking/ hiking. STG Duration 3 weeks -MET Nursing Home Goal (LTG) Pt will report 50% improvement in R hip/SI pain when walking /hiking. LTG Duration 6 weeks One Impairment HEP Short Term Goal (STG) Pt will report performing HEP >4 days/week. STG Duration 2 weeks -MET Nursing Home Goal (LTG) Pt will report performing HEP >4 days/week. LTG Duration 6 weeks Assessment Summary Assessment PT created 3 day exercise template for patient to perform. Today's session went over day 1 of the template; PT printed out exercises for patient as well including seated quad stretch and quadruped post capsule stretch . Will reviews days 2 and 3 at next sessions. Physical Therapy Plan Next Visit Focus/Plan Next Note Type Treatment Note Next Visit Plan bike, bridge variations, hip thrust, squat, step ups, hinge , TM at end review her HEP
--- NOTE | 2023-08-06 08:10 | PT.OTN ---
Current Diagnoses Other chronic pain (08/06/23) Pain in right hip (08/06/23) Sacrococcygeal disorders, not elsewhere classified (08/06/23) Physical Therapy Treatment Note PT-OP-A Visit Information Start: 06/05/23 07: Freq: Status: Active Protocol: Document 08/06/23 08:06 ED (Rec: 08/06/23 08:10 ED [id number]) Out-Patient Physical Therapy Visit Information Visit Information Visit Type Treatment Note Visit Note 12/05 Visit Start Time 07:30 Visit Stop Time 08:10 Total Visit Minutes 40 Visit Number 12 PT-OP-B Current Condition Start: 06/05/23 07:23 Freq: Status: Active Protocol: Document 06/05/23 10:39 ED (Rec: 06/05/23 10:54 ED [id number]) Current Condition History of Current Condition Onset Date March Current Complaints R hip, SI pain History of Current Condition Pt states that she has been having R hip and SI pain since March of this year which she attributes to doing too much yard work in a day. The pain comes and goes but is most noticeable after prolonged walking. She used to walk 3 miles most days of the week but has since only been walking .5 miles or so. She notes she has a leg length discrepancy and wears a heel lift for her L LE. She states she has been trying to manage it c/ Tylenol and ice. PT-OP-C Subjective Start: 06/05/23 07:23 Freq: Status: Active Protocol: Document 08/06/23 08:06 ED (Rec: 08/06/23 08:10 ED [id number]) OP-PT Subjective Patient Comments Patient Comments Pt continues to walk most days of the week for 30-60 minutes . Hip has been feeling good. her made her an 8'' box so she can do exercises with it. PT-OP-K Range of Motion Start: 06/05/23 07:23 Freq: Status: Active Protocol: Document 06/05/23 10:39 ED (Rec: 06/05/23 10:54 ED [id number]) Hip Goniometric Range of Motion Hip Left Passive Hip ROM WFL Yes Testing Position Supine Comments no pain noted in hip or low back during ROM testing. Normal ROM observed, no obvious limitations Left Hip ROM WFL Yes Testing Position Supine PT-OP-L Special Tests Start: 06/05/23 07:23 Freq: Status: Active Protocol: Document 06/05/23 10:39 ED (Rec: 06/05/23 10:54 ED [id number]) Special Tests Lumbar Spine Special Tests Standing Flexion Test Results - Neural Special Tests- Lower Body Sciatic Nerve Tension Test Results - PT-OP-Q Treatments Start: 06/05/23 07:23 Freq: Status: Active Protocol: Document 08/06/23 08:06 ED (Rec: 08/06/23 08:10 ED [id number]) Cardio Equipment Recumbent Bicycle Duration (Minutes) 5 Resistance 5 Therapeutic Exercises Sitting Exercises quad stretch Reps/Minutes 2x30'' pigeon stretch Sitting Exercise Name quadruped post capsule stretch Reps/Minutes 2x30'' Standing Exercises banded walk Standing Exercise Name lateral band walk Resistance green loop Reps/Minutes 1x15' Therapeutic Activity Therapeutic Activity squat Name squat Reps/Minutes 3x10 Comments 10# step ups Name step up variations Reps/Minutes 2i78-90 Comments no weight; UE assistance for balance 8'' step PT-OP-T Assessment and Plan Start: 06/05/23 07:23 Freq: Status: Active Protocol: Document 08/06/23 08:06 ED (Rec: 08/06/23 08:10 ED [id number]) Physical Therapy Assessment Goals Three Impairment LEFS Forensic Structural Engineer Goal (LTG) Pt will improve LEFS score by 6 points to a score of 50. LTG Duration 4-6 weeks -MET Two Impairment pain Short Term Goal (STG) Pt jesus report 20% improvement in R hip/SI pain when walking/ hiking. STG Duration 3 weeks -MET Residential Goal (LTG) Pt will report 50% improvement in R hip/SI pain when walking /hiking. LTG Duration 6 weeks One Impairment HEP Short Term Goal (STG) Pt will report performing HEP >4 days/week. STG Duration 2 weeks -MET Residential Goal (LTG) Pt will report performing HEP >4 days/week. LTG Duration 6 weeks -MET Assessment Summary Assessment PT had patient go through day 2 of her exercise routine which included banded walks, hip stretch, quad stretch, squats, and step up variations . Pt able to perform exercises without pain. Next week, we will go over day 3 of her routine. Physical Therapy Plan Next Visit Focus/Plan Next Note Type Treatment Note Next Visit Plan day 3 plan review her HEP
--- NOTE | 2023-08-12 08:12 | PT.OPDS ---
Current Diagnoses Other chronic pain (08/12/23) Pain in right hip (08/12/23) Sacrococcygeal disorders, not elsewhere classified (08/12/23) Visit Care Team Role Provider Type Keagan Merrill MD Attending Provider Physician Family Provider Primary Care Provider Referring Provider Specialty: Internal Medicine Address: [address] [place] [address], [id number] Email: [email or web address] Visit Number Visit Number 13 Discharge Summary PT-OP-B Current Condition Start: 06/05/23 07:23 Freq: Status: Active Protocol: Document 08/12/23 08:07 ED (Rec: 08/12/23 08:12 ED [id number]) Current Condition History of Current Condition Onset Date March Current Complaints R hip, SI pain History of Current Condition DC: Pt states that her R hip is feeling better. She is able to walk for an hour now. She has been doing her HEP fairly frequently. She is able to do all the exercises without pain . IE: Pt states that she has been having R hip and SI pain since March of this year which she attributes to doing too much yard work in a day. The pain comes and goes but is most noticeable after prolonged walking. She used to walk 3 miles most days of the week but has since only been walking .5 miles or so. She notes she has a leg length discrepancy and wears a heel lift for her L LE. She states she has been trying to manage it c/ Tylenol and ice. PT-OP-C Subjective Start: 06/05/23 07:23 Freq: Status: Active Protocol: Document 08/06/23 08:06 ED (Rec: 08/06/23 08:10 ED [id number]) OP-PT Subjective Patient Comments Patient Comments Pt continues to walk most days of the week for 30-60 minutes . Hip has been feeling good. her made her an 8'' box so she can do exercises with it. PT-OP-K Range of Motion Start: 06/05/23 07:23 Freq: Status: Active Protocol: Document 06/05/23 10:39 ED (Rec: 06/05/23 10:54 ED [id number]) Hip Goniometric Range of Motion Hip Left Passive Hip ROM WFL Yes Testing Position Supine Comments no pain noted in hip or low back during ROM testing. Normal ROM observed, no obvious limitations Left Hip ROM WFL Yes Testing Position Supine PT-OP-L Special Tests Start: 06/05/23 07:23 Freq: Status: Active Protocol: Document 06/05/23 10:39 ED (Rec: 06/05/23 10:54 ED [id number]) Special Tests Lumbar Spine Special Tests Standing Flexion Test Results - Neural Special Tests- Lower Body Sciatic Nerve Tension Test Results - PT-OP-T Assessment and Plan Start: 06/05/23 07:23 Freq: Status: Active Protocol: Document 08/12/23 08:07 ED (Rec: 08/12/23 08:12 ED [id number]) Physical Therapy Assessment Goals Three Impairment LEFS Group Home Goal (LTG) Pt will improve LEFS score by 6 points to a score of 50. LTG Duration 4-6 weeks -MET Two Impairment pain Short Term Goal (STG) Pt jesus report 20% improvement in R hip/SI pain when walking/ hiking. STG Duration 3 weeks -MET Etl Lead Goal (LTG) Pt will report 50% improvement in R hip/SI pain when walking /hiking. LTG Duration 6 weeks One Impairment HEP -MET Short Term Goal (STG) Pt will report performing HEP >4 days/week. STG Duration 2 weeks -MET Etl Lead Goal (LTG) Pt will report performing HEP >4 days/week. LTG Duration 6 weeks -MET Assessment Summary Assessment PT had patient go through day 3 of her exercise routine which included banded walks, hip stretch, quad stretch, bridges, and step up variations. Pt santos simproved significantly since starting PT. She originally was limited in walking duration d/t hip pain but is now able to walk up to 1 hour without hip pain. Pt improved LEFS score from 56/80 to 69/80 meeting criteria for MCID. Physical Therapy Plan Discharge Physical Therapy Discharge Reasons Goals Met
== END 2023-08-17 14:03 | disposition home or self-care (01) ==
LOC: PHYS 07:30
PROVIDERS: Family Provider Internal Medicine; PCP Internal Medicine; Referring Provider Internal Medicine; Visit Provider Internal Medicine
DX: M53.3 Sacrococcygeal disorders, not elsewhere classified (principal); G89.29 Other chronic pain; M25.551 Pain in right hip
CPT/HCPCS: 97110; 97161; 97530

== ENCOUNTER → 2023-10-07 10:02 | Outpatient (CLI) | payer MEDICARE, SELFPAY ==
[2023-10-07 10:29] LABS: Appearance Urine UA SL CLOUDY; Bilirubin Urine UA NEGATIVE (NEGATIVE); Color Urine UA YELLOW; Glucose Urine UA NEGATIVE (Negative); Ketones Urine UA NEGATIVE (NEGATIVE); Leukocyte Esterase Urine UA NEGATIVE (NEGATIVE); Nitrite Urine UA POSITIVE (Negative); Occult Blood Urine UA 2+ (Negative); Protein Urine UA TRACE (Negative); Specific Gravity Urine UA >=1.030 (1.000-1.035); Urobilinogen Urine UA 0.2 E.U./dL (0.2)
[2023-10-07 10:38] LABS: Bacteria Urine Moderate (10-30); Calcium Oxalate Crystals Urine Occasional; Culture Indicated Urine Specimen Cultured; Mucus Urine 1+ (Negative); RBC Urine 1-5/HPF (0-5/HPF); Squamous Epithelial Cell Urine 0-1 /HPF (0-5/HPF); WBC Urine 1-5/HPF (0-5/HPF)
== END ==
PROVIDERS: Family Provider Internal Medicine; PCP Internal Medicine; Referring Provider Internal Medicine; Visit Provider Internal Medicine
DX: R35.0 Frequency of micturition (principal); R31.9 Hematuria, unspecified; R30.0 Dysuria
CPT/HCPCS: 81001; 87077; 87086; 87186

== ENCOUNTER → 2023-11-24 10:51 | Outpatient (CLI) | payer MEDICARE, SELFPAY ==
--- NOTE | 2023-11-24 10:52 | DI.MRI.S_ITS ---
BREAST MRI OF BOTH BREASTS: 11/24/2023 CLINICAL: Routine screen. 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 Precontrast axial STIR and 3D FLASH without fat saturation sequences were obtained. Both before and after bolus injection of contrast, sequential 1-minute axial 3D FLASH with fat saturation sequences for 3 time points, with subtraction images and maximum intensity projections (MIP's) generated. Delayed sagittal FLASH images with fat saturation were also obtained. Computer-aided detection, including computer algorithm analysis of MRI image data for lesion detection and characterization, pharmacokinetic analysis, with further physician review for interpretation, was performed. COMPARISON: [facility], MR, MR BREAST BI WO/W CON, 11/14/2022, 11/05/2021, 11/06/2020 FINDINGS: Image quality: Diagnostic. The breasts have heterogeneous amount of fibroglandular tissue. There is minimal and symmetric background parenchymal enhancement. Right breast: No suspicious enhancement or lymphadenopathy. Left breast: No suspicious enhancement or lymphadenopathy. IMPRESSION: NEGATIVE No MRI evidence of malignancy. Recommend routine annual MRI and mammogram screening. Future imaging is recommended as follows: 03/20/2024 screening mammogram. This exam was interpreted at Station ID: [id number]. Electronically Signed By: Joan Atwood M.D., PH.D eb/:11/24/2023 22:26:31 ACR BI-RADS Category 1: Negative [id number]
== END ==
LOC: MRI 10:51
PROVIDERS: Family Provider Internal Medicine; PCP Internal Medicine; Referring Provider Internal Medicine; Visit Provider Internal Medicine
DX: Z12.39 Encounter for other screening for malignant neoplasm of breast (principal); Z15.01 Genetic susceptibility to malignant neoplasm of breast; Z15.02 Genetic susceptibility to malignant neoplasm of ovary; Z15.09 Genetic susceptibility to other malignant neoplasm; Z15.89 Genetic susceptibility to other disease; Z78.9 Other specified health status; Z80.3 Family history of malignant neoplasm of breast
CPT/HCPCS: 77049; A9579

== ENCOUNTER → 2023-11-30 09:51 | Outpatient (CLI) | payer MEDICARE, SELFPAY ==
[2023-11-30 11:13] LABS: Aspartate Aminotransferase 26 IU/L (14-36); BUN Creatinine Ratio 23.5 (6-22); Blood Urea Nitrogen 19 mg/dL (7-17); Calcium 10.2 mg/dL (8.4-10.2); Carbon Dioxide 30 mmol/L (22-32); Chloride 102 mmol/L (98-107); Cholesterol 234 mg/dL (140-199); Estimated Glomerular Filt Rate > 60 mL/min (>60); Glucose 93 mg/dL (80-110); HDL Cholesterol 76 mg/dL (40-60); HEMOLYSIS < 15 (0-50); LDL Cholesterol Calculated 143 mg/dL (<100); Potassium 4.4 mmol/L (3.4-5.1); Sodium 137 mmol/L (137-145); Triglycerides 75 mg/dL (35-150)
== END ==
LOC: LAB 09:52
PROVIDERS: Family Provider Internal Medicine; PCP Internal Medicine; Referring Provider Internal Medicine; Visit Provider Internal Medicine
DX: E78.2 Mixed hyperlipidemia (principal)
CPT/HCPCS: 36415; 80048; 80061; 84450

== ENCOUNTER → 2024-04-16 08:21 | Outpatient (CLI) | payer MEDICARE, SELFPAY ==
--- NOTE | 2024-04-16 | DI.MG.S_ITS ---
BILATERAL DIGITAL SCREENING MAMMOGRAM 3D/2D WITH CAD: 04/16/2024 CLINICAL: Routine screening. Family history of breast cancer. Comparison is made to exams dated: 03/20/2023 mammogram, 03/14/2022 mammogram, and 03/13/2021 mammogram - [facility]. Both breasts are heterogeneously dense, which may obscure small masses (category c / 51-75% glandular tissue). Current study was also evaluated with a Computer Aided Detection (CAD) system. There are benign vascular calcifications in both breasts. No significant masses, calcifications, or other findings are seen in either breast. There has been no significant interval change. IMPRESSION: BENIGN There is no mammographic evidence of malignancy. A 1 year screening mammogram is recommended. Based on the Tyrer Cuzick model (a risk assessment model) the patient's lifetime risk is 15.6% and her 10 year risk is 11.8%. According to the ACR, ACS, and NCCN guidelines, an annual breast MRI exam along with mammogram is recommended if the patient's lifetime risk is 20% or greater. This exam was interpreted at Station ID: [id number]. NOTE: For mammograms, a report in lay terms will be sent to the patient. Approximately 15% of breast malignancies will not be visualized mammographically. In the management of a palpable breast mass, a negative mammogram must not discourage biopsy of a clinically suspicious lesion. Electronically Signed By: Rudy bennett/abel:04/18/2024 08:58:23 letter sent: Normal Exam ACR BI-RADS Category 2: Benign Finding(s) [id number]
== END ==
PROVIDERS: Family Provider Internal Medicine; PCP Internal Medicine; Referring Provider Internal Medicine; Visit Provider Internal Medicine
DX: Z12.31 Encounter for screening mammogram for malignant neoplasm of breast (principal); Z80.3 Family history of malignant neoplasm of breast; R92.333 Mammographic heterogeneous density, bilateral breasts
CPT/HCPCS: 77063; 77067

== ENCOUNTER → 2024-09-15 12:58 | Outpatient (CLI) | payer MEDICARE, SELFPAY ==
--- NOTE | 2024-09-15 13:13 | DI.RAD.S_ITS ---
PROCEDURE: XR CHEST 2V INDICATIONS: Cough TECHNIQUE: 2 views of the chest were acquired. COMPARISON: None. FINDINGS: Heart, mediastinum and pulmonary vascular: Heart is normal in size and configuration. Mediastinum is unremarkable. Pulmonary vascular is normal. Lungs: A 3.5 cm nodular density blunts the posterior right costophrenic angle. This is likely a very small Bochdalek hernia. There are common. A pulmonary nodule would be less likely. Pleural spaces: Normal-no effusions or pneumothorax. Bones and soft tissues: Normal IMPRESSION: 3.5 cm nodular density blunting the posterior right costophrenic angle. It is likely of a small Bochdalek hernia which are commonly seen. Consider limited fluoroscopic exam of the diaphragms or chest CT to confirm Dictated by: Luis Woodruff M.D. on 09/16/2024 at 7:39 Approved by: Luis Woodruff M.D. on 09/16/2024 at 7:41
[2024-09-15 13:42] LABS: Influenza A - CEPHEID Flu A NEGATIVE (NEGATIVE); Influenza B - CEPHEID Flu B NEGATIVE (NEGATIVE); Respiratory Syncytial Virus Negative (Negative)
[2024-09-15 13:43] LABS: COVID-19 CEPHEID 4-PLEX PCR POSITIVE (Negative)
== END ==
PROVIDERS: Family Provider Internal Medicine; PCP Internal Medicine; Referring Provider Nurse Practitioner Family; Visit Provider Nurse Practitioner Family
DX: R05.9 Cough, unspecified (principal); R09.81 Nasal congestion; R53.81 Other malaise; R53.83 Other fatigue; R91.1 Solitary pulmonary nodule
CPT/HCPCS: 0241U; 71046

== ENCOUNTER → 2024-09-23 08:39 | Outpatient (CLI) | payer MEDICARE, SELFPAY ==
--- NOTE | 2024-09-23 08:40 | DI.CT.S_ITS ---
PROCEDURE: CT CHEST WO CON INDICATIONS: Abnormal findings on diagnostic imaging of other specified TECHNIQUE: Noncontrast 5 mm thick sections acquired from the pulmonary apices to the posterior costophrenic angles. 1 mm lung window, 5 mm thick coronal and sagittal and 7 mm axial MIP reformats were then acquired. For radiation dose reduction, the following was used: automated exposure control, adjustment of mA and/or kV according to patient size. COMPARISON: [facility], CR, XR CHEST 2V, 09/15/2024, 13:41. FINDINGS: Image quality: Diagnostic. Lower Neck: No enlarged lymph nodes. Thyroid: No thyroid nodules which require sonographic follow up, per consensus guidelines. Axillae: No enlarged lymph nodes. Chest Wall: Unremarkable. Bones: Unremarkable. Lungs and Pleura: No pneumothorax or pleural effusions. No consolidation or suspicious nodules. Note is made of a posterior medial left diaphragmatic discontinuity through which upper abdominal fat herniates to a mild degree, through a defect measuring up to 3.0 x 5.0 cm in maximal AP and transverse dimensions. No visceral herniation into this area is present. No associated abnormality seen at the left upper quadrant except mild elevation of the spleen and pancreatic tail towards that area. Heart: Heart size is normal. No pericardial effusion. Thoracic Vessels: The aorta and pulmonary arteries demonstrate normal size. Mediastinum and K[place]: No enlarged lymph nodes. Esophagus: No wall thickening. No hiatal hernia. Upper Abdomen: Visualized upper abdomen solid organs and bowel loops appear normal. IMPRESSION: Mild Bochdalek's hernia posterior left upper quadrant allowing fat to extend into the posterior left pleural space causing the radiodensity in that area seen on the lateral view chest plain film 8 days ago. The absence of evidence of trauma at the left upper quadrant indicates that this likely is a congenital rather than posttraumatic defect which generally has no symptomatology associated. No follow-up recommended. Dictated by: Shayne Davis M.D. on 09/23/2024 at 13:13 Approved by: Shayne Davis M.D. on 09/23/2024 at 13:21
== END ==
PROVIDERS: Family Provider Internal Medicine; PCP Internal Medicine; Referring Provider Internal Medicine; Visit Provider Internal Medicine
DX: K45.8 Other specified abdominal hernia without obstruction or gangrene (principal); R93.89 Abnormal findings on diagnostic imaging of other specified body structures
CPT/HCPCS: 71250

== ENCOUNTER → 2024-12-01 11:26 | Outpatient (CLI) | payer MEDICARE, SELFPAY ==
[2024-12-01 13:22] LABS: Aspartate Aminotransferase 28 IU/L (14-36); Blood Urea Nitrogen 20 mg/dL (7-17); Calcium 10.2 mg/dL (8.4-10.2); Carbon Dioxide 28 mmol/L (22-32); Chloride 105 mmol/L (98-107); Cholesterol 171 mg/dL (140-199); Estimated Glomerular Filt Rate > 60 mL/min (>60); Glucose 93 mg/dL (80-110); HDL Cholesterol 72 mg/dL (40-60); HEMOLYSIS < 15 (0-50); LDL Cholesterol Calculated 81 mg/dL (<100); Potassium 4.5 mmol/L (3.4-5.1); Sodium 139 mmol/L (137-145); Triglycerides 92 mg/dL (35-150)
== END ==
PROVIDERS: Family Provider Internal Medicine; PCP Internal Medicine; Referring Provider Internal Medicine; Visit Provider Internal Medicine
DX: E78.2 Mixed hyperlipidemia (principal); I87.2 Venous insufficiency (chronic) (peripheral)
CPT/HCPCS: 36415; 80048; 80061; 84450

== ENCOUNTER → 2024-12-12 07:11 | Outpatient (CLI) | payer MEDICARE, SELFPAY ==
--- NOTE | 2024-12-12 07:12 | DI.MRI.S_ITS ---
BREAST MRI OF BOTH BREASTS: 12/12/2024 CLINICAL: High risk screening. TECHNIQUE: The patient was placed prone in a dedicated breast imaging coil. Precontrast axial STIR and 3D FLASH without fat saturation sequences were obtained. Both before and after bolus injection of contrast, sequential 1-minute axial 3D FLASH with fat saturation sequences for 3 time points, with subtraction images and maximum intensity projections (MIP's) generated. Delayed sagittal FLASH images with fat saturation were also obtained. Computer-aided detection, including computer algorithm analysis of MRI image data for lesion detection and characterization, pharmacokinetic analysis, with further physician review for interpretation, was performed. COMPARISON: [facility], MR, MR BREAST BI WO/W CON, 11/24/2023, 11:21. FINDINGS: Image quality: Excellent. There is minimal background parenchymal enhancement. Right breast: No suspicious mass or non masslike enhancement. No skin or nipple abnormalities. Left breast: No suspicious mass or non masslike enhancement. No skin or nipple abnormalities. Miscellaneous: No axillary or internal mammary chain adenopathy. The visible portions of the chest wall, liver, heart, and lungs appear normal. IMPRESSION: NEGATIVE IMPRESSION: No MR evidence of malignancy in either breast. Stable exam compared to prior. Continue routine screening with mammograms and MRI. Future imaging is recommended as follows: 04/17/2025 screening mammogram. BIRADS one, negative COMMENT: The imaging literature indicates that a negative contrast breast MRI examination has a high sensitivity and a moderate specificity for detecting and excluding invasive carcinomas to a detection threshold of 3-5 mm; nonetheless, appropriate clinical and mammographic follow-up are recommended. MRI is not sensitive for detecting DCIS (ductal carcinoma in situ) and may not detect large invasive neoplasms that show only minimal enhancement such as mucinous carcinoma. If there are suspicious calcifications or clinically worrisome palpable masses, then biopsy should still be considered. Invasive neoplasms can be hidden by co-existent and benign enhancement caused by mastitis, hormone therapy effects, radiation therapy, , and recent biopsy or surgery. False positive examinations can occur in a number of circumstances, including breasts that have recently been subject to invasive procedures and those that contain atypical ductal hyperplasia, hormonally stimulated glandular tissue, fat necrosis, or radial scars. This exam was interpreted at Station ID: [id number]. Electronically Signed By: Ailyn kelsey/:12/12/2024 13:40:47 letter sent: Normal Exam ACR BI-RADS Category 1: Negative
== END ==
PROVIDERS: Family Provider Internal Medicine; PCP Internal Medicine; Referring Provider Internal Medicine; Visit Provider Internal Medicine
DX: Z12.39 Encounter for other screening for malignant neoplasm of breast (principal); Z80.3 Family history of malignant neoplasm of breast; Z15.01 Genetic susceptibility to malignant neoplasm of breast; Z15.02 Genetic susceptibility to malignant neoplasm of ovary; Z15.09 Genetic susceptibility to other malignant neoplasm; Z15.89 Genetic susceptibility to other disease
CPT/HCPCS: 77049; A9579

== ENCOUNTER 2025-02-23 09:47 | Day surgery (SDC) | payer MEDICARE, SELFPAY ==
--- NOTE | 2025-02-23 | PATH_ITS ---
[facility] Accession Number: [id number] No. of containers..01 Tissue . 01 Material submitted: . colon - COLON, CECAL POLYP . 01 Diagnosis: CECUM: Colonic mucosa with intramucosal lymphoid aggregate; multiple levels examined. Negative for dysplasia and malignancy. MRV 03/01/2025 1052 Local . 01 Electronically signed: . Amy Arana DO, Pathologist NPI- [id number] . 01 Gross description: . COLON, CECAL POLYP: Received in formalin are 2 fragment(s) of perez, soft tissue measuring 0.1 x 0.1 x 0.1 cm to 0.4 x 0.2 x 0.1 cm submitted entirely in 1 cassette(s) /LIANG 02/23/2025 2355 Local . 01 Pathologist provided ICD-10: Z12.11 . 01 CPT . 025786 Specimen Comment: A courtesy copy of this report has been sent to [phone] Performed at: [address] [address], [place], [place] [id number] MD Michael Daniel MD Phone: [phone]
[2025-02-23 10:06] VITALS: BP 165/79; PULSE 72; RESP 16; TEMP 36.2; O2SAT 98
[2025-02-23] MEDS: LACTATED RINGERS 1,000 ML 84 ML IV (10:17)
--- NOTE | 2025-02-23 10:29 | PM.HP.IH.1 ---
History of Present Illness History of Present Illness Date Patient Seen: 02/23/25 Time Patient Seen: 10:29 Chief complaint: Colonoscopy Narrative: Gi is a 75-year-old woman who presents for screening colonoscopy. Her last colonoscopy was about 10 years ago. She believes there may have been polyps. It was done with [facility]. No family history of colon cancer. 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) Mumps Osteopenia (~1996) Ovarian cyst (2004) Piriformis syndrome (2015) Primary osteoarthritis involving multiple joints Spinal stenosis, lumbar region without neurogenic claudication Toe fracture (2013) Venous (peripheral) insufficiency Surgical History Anesthesia History of bilateral salpingo-oophorectomy (BSO) History of cataract removal with insertion of prosthetic lens (2011) History of right oophorectomy (2004) History of third molar tooth extraction (1971) Family History Brother Age: 68 Bipolar 1 disorder Cardiomyopathy Diabetes mellitus Heart disease Hypertension High cholesterol COPD (chronic obstructive pulmonary disease) Mental health problem Father S/P CABG x 6 Heart disease High cholesterol Mental health problem Parkinson's disease Dementia Prostate cancer Grandfather Hypertension Stroke Migraines Heart disease Mother Heart disease Heart attack Grandfather Cancer Grandmother Cancer Sister Age: 59 Heart disease High cholesterol Mental health problem Breast cancer Grandmother Dementia Social History household members: spouse Smoking Status: Never smoker alcohol intake: current Meds Home Medications and Allergies Home Medications Medication Instructions Recorded Confirmed Type cholecalciferol (vitamin D3) 25 25 mcg PO DAILY 04/10/21 12/01/24 History mcg (1,000 unit) tablet (Vitamin D3) coenzyme Q10 100 mg capsule 100 mg PO DAILY 04/10/21 12/01/24 History (CoQ-10) magnesium 250 mg tablet 250 mg PO DAILY 04/10/21 12/01/24 History Fish Oil (Fish Oil 500 MG Softgel) 1,000 mg PO BID ##0 09/12/22 12/01/24 History montelukast 10 mg tablet 10 mg PO DAILY #90 tabs 12/01/24 02/23/25 Rx rosuvastatin 10 mg tablet 10 mg PO DAILY #90 tabs 12/01/24 02/23/25 Rx fluticasone propionate [Aller-Eliu] 2 spray intranasal BID 12/02/24 History loratadine 10 mg tablet 10 mg PO BEDTIME 12/02/24 02/23/25 History (Allerclear) doxycycline hyclate 100 mg capsule 100 mg PO DAILY #28 caps 01/04/25 Rx sodium,potassium,mag sulfates 17.5 See Rx Instructions PO .COMPLEX 01/20/25 Rx gram-3.13 gram-1.6 gram oral soln #354 mL (Suprep Bowel Prep Kit) Allergies Allergy/AdvReac Type Severity Reaction Status Date / Time Penicillins Allergy Mild RASH Verified 02/23/25 10:01 Exam Vital Signs (past 8 hours): - 02/23/25 10:06 Temperature 97.2 F L Pulse Rate 72 Respiratory Rate 16 Blood Pressure 165/79 H Pulse Oximetry 98 Oxygen Delivery Method Room Air Oxygen Delivery Method Room Air Const General: healthy appearing Resp Effort & Inspection: normal respiratory effort Assessment & Plan Assessment and plan (1) History of colonic polyps: Status: Acute Plan Colonoscopy Time-Based Coding :: [TOTAL MINUTES] spent with patient and on the chart (including review of chart, obtaining history, exam, reviewing outside data, placing orders, documenting exam and treatment plan, and counseling patient) on [DATE]. PROFEE Computer Installer Document charge(s): No
[2025-02-23 11:00] VITALS: BP 92/57; PULSE 68; RESP 18; TEMP 36.1; O2SAT 96
--- NOTE | 2025-02-23 11:01 | PM.OP.COLON ---
Operative Date/Time/Diagnoses Date of procedure: 02/23/25 Time of procedure: 11:01 Pre-op diagnosis: History of colon polyps Post-op diagnosis: same Procedure & Clinicians Study performed: Colonoscopy Same procedure as scheduled: Yes Surgeon: Michael Duncan Procedure Notes Procedure in detail: Surgeon: Michael Duncan MD Anesthesia: Fredy Jauregui MD Procedure: The patient was brought to the endoscopy suite, placed in left lateral decubitus position. The patient was connected to monitoring devices. A time-out was performed. Sedation was administered. Once the patient was adequately sedated, a digital rectal exam was performed and was normal. The scope was then inserted and advanced to the cecum where the appendiceal orifice was identified and photographed. The scope was then slowly withdrawn over greater than 6 minutes. The mucosa was thoroughly inspected. There was a small polyp in the cecum near the appendiceal orifice removed with the Jumbo forceps. The scope was retroflexed in the rectum. No other abnormalities were found. The scope was straightened and removed. The patient was awakened and brought to recovery. Scope withdrawal time: 7 minutes Sedation time: 19 minutes EBL: 2 mL Findings: Small cecal polyp Post-procedure Disposition: PACU
[2025-02-23 11:05] VITALS: BP 97/61; PULSE 65; RESP 16; O2SAT 97
[2025-02-23 11:10] VITALS: BP 103/66; PULSE 66; RESP 18; O2SAT 97
[2025-02-23 11:13] VITALS: BP 116/77; PULSE 67; RESP 13; TEMP 36.7; O2SAT 98
== END 2025-02-23 11:31 | disposition home or self-care (01) ==
PROVIDERS: Family Provider Internal Medicine; PCP Internal Medicine; Referring Provider Surgery; Visit Provider Surgery
PROC: 0DJD8ZZ Inspection of Lower Intestinal Tract, Via Natural or Artificial Opening Endoscopic (ICD-10-PCS; CPT 45378; principal; 2025-02-23 10:45)
DX: Z12.11 Encounter for screening for malignant neoplasm of colon (principal); Z86.0100 Personal history of colon polyps, unspecified; K63.5 Polyp of colon
CPT/HCPCS: 45380; J2704

== ENCOUNTER → 2025-08-26 08:14 | Outpatient (CLI) | payer MEDICARE, SELFPAY ==
--- NOTE | 2025-08-26 08:16 | DI.MG.S_ITS ---
MM screening mammo BI: 08/26/2025. BI-RADS: 2 CLINICAL: 75-year old female for bilateral screening mammogram. Tyrer-Cuzick lifetime risk of 11.4%. Current reported family history of breast cancer: sister and maternal aunt. PRIOR EXAMS 04/16/2024, 03/20/2023, 03/14/2022, 03/13/2021. MAMMOGRAPHY TECHNIQUE: 2D and 3D (tomosynthesis) digital mammographic views obtained, with additional images as needed for full coverage. Current study was also evaluated with a Computer Aided Detection (CAD) system. DENSITY C. The breasts are heterogeneously dense, which may obscure small masses. MAMMOGRAPHY FINDINGS Bilateral: Typically-benign vascular calcifications noted. IMPRESSION: * No evidence of malignancy with benign findings. RECOMMENDATIONS Bilateral * Annual screening mammography. OVERALL ASSESSMENT CATEGORY BI-RADS-2: Benign. [employer] recommends annual screening mammography beginning at age 40 for women with average risk of breast cancer. ELECTRONICALLY SIGNED: Tony Zuniga M.D. on 08/28/2025 at 07:36:12 AM PT Interpreting Station ID: [id number]
== END ==
LOC: MAMMO 08:15
PROVIDERS: Family Provider Internal Medicine; PCP Internal Medicine; Referring Provider Internal Medicine; Visit Provider Internal Medicine
DX: Z12.31 Encounter for screening mammogram for malignant neoplasm of breast (principal); Z80.3 Family history of malignant neoplasm of breast; R92.333 Mammographic heterogeneous density, bilateral breasts
CPT/HCPCS: 77063; 77067